=== PATIENT | male | born 1950 | race Caucasian/White ===

== ENCOUNTER → 2019-10-29 | Day surgery (SDC) | payer OTHER | END | disposition home or self-care (01) | LOC: JRADIR 12:33 | PROVIDERS: ATTEND Internal Medicine | PROC: BW11YZZ Fluoroscopy of Abdomen and Pelvis using Other Contrast (ICD-10-PCS; principal; 2019-10-29) | DX: K65.1 Peritoneal abscess (principal) | CPT/HCPCS: 49424; 76000-TC-FY; 76080-TC-FY ==

== ENCOUNTER 2019-11-12 12:39 | Inpatient (IN) | payer OTHER ==
[2019-11-12] MEDS ORDERED: ACETAMINOPHEN 1000 MG/100 ML VIAL (NON FORMULARY) IVPB ONE (14:01)
--- NOTE | 2019-11-12 15:08 | PDOC ---
Attending Attestation - Resident Resident Name: ReymundoRoxanna - ED Attending Attestation I have performed the following: I have examined & evaluated the patient, The case was reviewed & discussed with the resident, I agree w/resident's findings & plan - HPI HPI: 11/12/19 15:03 69-year-old male with history of ruptured appendicitis complicated by abscesses several weeks ago status post drain placement and removal with resolution of symptoms presents now with return of right lower quadrant pain since last night, described as dull ache without any associated fever/chills/GI complaints/ complaints. Seen for routine follow-up by Dr. Pyle and referred to the emergency department. - Physicial Exam PE: 11/12/19 15:04 Afebrile, blood pressure slightly elevated Well-appearing seated comfortably in stretcher in no acute distress No jaundice or pallor Heart is regular, lungs are clear Abdomen is soft/nondistended. Well-healed drain sites without erythema or swelling or bleeding. There is tenderness with guarding in the lateral right lower quadrant, no other rebound. No CVA tenderness. - Medical Decision Making 11/12/19 15:07 69-year-old male with recent ruptured appendicitis requiring drain placement and removal now with recurrence of right lower quadrant pain and local peritoneal findings. Otherwise well-appearing and hemodynamically stable. Concerning for recurrence of fluid collection and infection. Labs, urinalysis CT of the abdomen and pelvis Discussion with general surgery 11/12/19 16:29 leukocytosis, chem wnl including lipase. ctap pending Heart Score/ECG Review #1 ECG reviewed & interpreted by me at: 14:37 General ECG Interpretation: Sinus Rhythm, Normal Rate (81), Normal Intervals (qtc 429), No acute ischemic changes Discharge - Discharge Information Problems reviewed: Yes Clinical Impression/Diagnosis: Acute appendicitis with appendiceal abscess, Right lower quadrant pain Condition: Fair - Follow up/Referral Referrals: Jennifer Pyle MD [Primary Care Provider] - - Patient Discharge Instructions - Post Discharge Activity
[2019-11-12 15:33] LABS: BASO % 0.6 % (0-2.0); EOS % 0.7 % (0-4.5); HEMATOCRIT 44.4 % (35.4-49); HEMOGLOBIN 14.5 GM/dL (11.7-16.9); LYMPH % 23.6 % (8-40); MCH 30.5 pg (25.7-33.7); MCHC 32.7 g/dl (32.0-35.9); MONO % 11.9 % (3.8-10.2); NEUT % 63.2 % (42.8-82.8); PLATELET COUNT 181 K/MM3 (134-434); RBC 4.77 M/mm3 (4.00-5.60); RDW 17.8 % (11.9-15.9); WHITE BLOOD COUNT 15.3 K/mm3 (4.0-10.0)
[2019-11-12 15:39] LABS: INR 0.99 (0.83-1.09); PROTHROMBIN TIME (PATIENT) 11.7 SEC (9.7-13.0)
[2019-11-12 15:42] LABS: ACTIVATED PTT 28.9 SECONDS (25.2-36.5)
--- NOTE | 2019-11-12 16:03 | EKG ---
Test Reason : Blood Pressure : / mmHG Vent. Rate : 081 BPM Atrial Rate : 081 BPM P-R Int : 178 ms QRS Dur : 098 ms QT Int : 370 ms P-R-T Axes : 062 004 044 degrees QTc Int : 429 ms NORMAL SINUS RHYTHM POSSIBLE LEFT ATRIAL ENLARGEMENT NONSPECIFIC ST ABNORMALITY ABNORMAL ECG WHEN COMPARED WITH ECG OF 15-OCT-2019 22:20, PREMATURE SUPRAVENTRICULAR COMPLEXES ARE NO LONGER PRESENT MINIMAL CRITERIA FOR INFERIOR INFARCT ARE NO LONGER PRESENT Confirmed by MIYA PURI MD ([id number]) on 11/12/2019 4:03:18 PM Referred By: Confirmed By:MIYA PURI MD
[2019-11-12] MEDS ORDERED: SODIUM CHLORIDE 1,000 ML IV STA (16:08)
[2019-11-12] MEDS ORDERED: CEFEPIME HCL/D5W 2 GM/50 ML BAG IVPB ONE (16:08)
[2019-11-12 16:10] LABS: ALBUMIN 3.4 g/dl (3.4-5.0); BILIRUBIN,TOTAL 0.8 mg/dL (0.2-1); BLOOD UREA NITROGEN 12.2 mg/dL (7-18); CREATININE 0.8 mg/dL (0.55-1.3); POTASSIUM 3.5 mmol/L (3.5-5.1); TOT PROT 7.1 g/dl (6.4-8.2)
[2019-11-12] MEDS ORDERED: CEFEPIME 2 GM/100 ML BAG IVPB ONE (16:58)
[2019-11-12] MEDS ORDERED: LACTATED RINGERS SOLUTION 1000 ML INFUS.BAG IV ONE (19:13)
--- NOTE | 2019-11-12 19:14 | PDOC ---
History of Present Illness - General Chief Complaint: Pain, Acute Stated Complaint: SENT BY PCP Time Seen by Provider: 11/12/19 14:16 History Source: Patient Exam Limitations: No Limitations Past History - Medical History Allergies/Adverse Reactions: Allergies Allergy/AdvReac Type Severity Reaction Status Date / Time No Known Allergies Allergy Verified 11/12/19 12:41 Home Medications: Ambulatory Orders Metformin HCl [Glucophage] 500 mg PO DAILY 10/15/19 Acetaminophen [Tylenol .Regular Strength -] 650 mg PO Q6H PRN tablet 10/22/19 Amlodipine Besylate [Norvasc -] 10 mg PO DAILY 30 Days #30 tablet 10/22/19 Amoxicillin/Potassium Clav [Augmentin 875-125 Tablet] 1 each PO BID #20 tablet 10/22/19 Nicotine Patch [Nicoderm Patch -] 14 mg TD DAILY patch 10/22/19 Normal Saline Flush [Saline Lock Flush -] 2.5 ml IJ TID #20 disp.syrin 10/22/19 Cancer: Yes (Skin (Right yarsani)) COPD: No Diabetes: Yes HTN: Yes - Immunization History Immunization Up to Date: Yes - Psycho-Social/Smoking History Smoking History: Current every day smoker Have you smoked in the past 12 months: Yes Number of Cigarettes Smoked Daily: 20 Cigars Per Day: 0 Information on smoking cessation initiated: No - Substance Abuse Hx (Audit-C & DAST Scrn) How often the patient has a drink containing alcohol: Never Score: In Men: 4 or > Positive; In Women: 3 or > Positive: 0 Screen Result (Pos requires Nsg. Audit-10AR): Negative In the last yr the pt used illegal drug/Rx for NonMed reason: No Score: Yes response is considered Positive: 0 Screen Result (Positive result requires Nsg. DAST-10): Negative *Physical Exam - Vital Signs Last Vital Signs Temp Pulse Resp BP Pulse Ox 98.2 F 95 H 18 179/89 H 100 11/12/19 12:41 11/12/19 12:41 11/12/19 12:41 11/12/19 12:41 11/12/19 16:02 ED Treatment Course - LABORATORY CBC & Chemistry Diagram: 11/12/19 14:30 11/12/19 14:30 - ADDITIONAL ORDERS Additional order review: Laboratory Results 11/12/19 11/12/19 11/12/19 14:30 14:30 14:30 WBC 15.3 H RBC 4.77 Hgb 14.5 Hct 44.4 MCV 93.0 MCH 30.5 MCHC 32.7 RDW 17.8 H Plt Count 181 D MPV 9.0 Absolute Neuts (auto) 9.7 H Neutrophils % 63.2 Lymphocytes % 23.6 Monocytes % 11.9 H D Eosinophils % 0.7 Basophils % 0.6 Nucleated RBC % 0 PT with INR 11.70 INR 0.99 PTT (Actin FS) 28.9 Sodium 138 Potassium 3.5 Chloride 104 Carbon Dioxide 25 Anion Gap 9 BUN 12.2 Creatinine 0.8 Est GFR (CKD-EPI)AfAm 107.13 Est GFR (CKD-EPI)NonAf 92.44 Random Glucose 90 Calcium 9.0 Total Bilirubin 0.8 AST 29 ALT 47 Alkaline Phosphatase 119 H Total Protein 7.1 Albumin 3.4 Lipase 132 11/12/19 14:30 RBC 4.77 MCV 93.0 MCHC 32.7 RDW 17.8 H MPV 9.0 Neutrophils % 63.2 Lymphocytes % 23.6 Monocytes % 11.9 H D Eosinophils % 0.7 Basophils % 0.6 - RADIOLOGY Radiology Studies Ordered: Category Date Time Status ABDOMEN & PELVIS CT WITH CONTR [CT] Stat CT Scan 11/12/19 16:09 Completed - Medications Given in the ED: ED Medications Discontinued Medications Generic Name Dose Route Start Last Admin Trade Name Freq PRN Reason Stop Dose Admin Acetaminophen 1,000 mg 11/12/19 14:01 11/12/19 14:48 Ofirmev Injection - IVPB 11/12/19 14:02 Not Given ONCE ONE Cefepime HCl 2 gm in 50 mls @ 100 mls/hr 11/12/19 16:08 11/12/19 17:03 Maxipime 2gm Ivpb (Premix) IVPB 11/12/19 16:37 100 mls/hr ONCE ONE Administration Sodium Chloride 1,000 mls @ 1,000 mls/hr 11/12/19 16:08 11/12/19 17:04 Normal Saline - IV 11/12/19 17:07 1,000 mls/hr ASDIR STA Administration Discharge - Discharge Information Clinical Impression/Diagnosis: Acute appendicitis with appendiceal abscess, Right lower quadrant pain Condition: Fair - Follow up/Referral Referrals: Jennifer Pyle MD [Primary Care Provider] - - Patient Discharge Instructions - Post Discharge Activity
--- NOTE | 2019-11-12 19:32 | HP ---
CHIEF COMPLAINT:right lower quadrant pain PCP:Dr Marisol Pyle HISTORY OF PRESENT ILLNESS: 69-year-old male with a past medical history of diabetes mellitus, hypertension(on amlodipine) and a ruptured appendicitis complicated by abscesses several weeks ago status post drain placement and removal of LESVIA drain on 10/03 with completion of oral antibiotics with Augmentin. He presents today with right lower quadrant pain that started last night, described as dull ache without any associated fever/chills/nausea or vomiting. He denies chest pain, cough or shortness of breath. He was seen for routine follow-up by Dr. Pyle and referred to the emergency department today. ER course notable for: leukocytosis(WBC 15,000), received IV Cefepime 2gm. CT scan chest abdomen and pelvis with contrast- increased size of right lower quadrant complex mass involving the cecum and distal ileum, mass is ? abscess. Lipase , LFT's and renal studies are normal. Recent Travel: no PAST MEDICAL HISTORY: diabetes mellitus hypertension PAST SURGICAL HISTORY: ruptured appendicitis Social History: Smoking:yes Alcohol:no Drugs: no Family History: noncontributory Allergies No Known Allergies Allergy (Verified 11/12/19 12:41) HOME MEDICATIONS: Home Medications Medication Instructions Recorded Metformin HCl [Glucophage] 500 mg PO DAILY 10/15/19 Acetaminophen [Tylenol .Regular 650 mg PO Q6H PRN tablet 10/22/19 Strength -] Amlodipine Besylate [Norvasc -] 10 mg PO DAILY 30 Days #30 tablet 10/22/19 Amoxicillin/Potassium Clav 1 each PO BID #20 tablet 10/22/19 [Augmentin 875-125 Tablet] Nicotine Patch [Nicoderm Patch -] 14 mg TD DAILY patch 10/22/19 Normal Saline Flush [Saline Lock 2.5 ml IJ TID #20 disp.syrin 10/22/19 Flush -] REVIEW OF SYSTEMS CONSTITUTIONAL: Absent: fever, chills, diaphoresis, generalized weakness, malaise, loss of appetite, weight change HEENT: Absent: rhinorrhea, nasal congestion, throat pain, throat swelling, difficulty swallowing, mouth swelling, ear pain, eye pain, visual changes CARDIOVASCULAR: Absent: chest pain, syncope, palpitations, irregular heart rate, lightheadedness, peripheral edema RESPIRATORY: Absent: cough, shortness of breath, dyspnea with exertion, orthopnea, wheezing, stridor, hemoptysis GASTROINTESTINAL: Absent: right lower quadrant abdominal pain, no abdominal distension, nausea, vomiting, diarrhea, constipation, melena, hematochezia GENITOURINARY: Absent: dysuria, frequency, urgency, hesitancy, hematuria, flank pain, genital pain MUSCULOSKELETAL: Absent: myalgia, arthralgia, joint swelling, back pain, neck pain SKIN: Absent: rash, itching, pallor HEMATOLOGIC/IMMUNOLOGIC: Absent: easy bleeding, easy bruising, lymphadenopathy, frequent infections ENDOCRINE: Absent: unexplained weight gain, unexplained weight loss, heat intolerance, cold intolerance NEUROLOGIC: Absent: headache, focal weakness or paresthesias, dizziness, unsteady gait, seizure, mental status changes, bladder or bowel incontinence PSYCHIATRIC: Absent: anxiety, depression, suicidal or homicidal ideation, hallucinations. PHYSICAL EXAMINATION Vital Signs - 24 hr 11/12/19 11/12/19 12:41 16:02 Temperature 98.2 F Pulse Rate 95 H Respiratory 18 Rate Blood Pressure 179/89 H O2 Sat by Pulse 100 100 Oximetry (%) General no acute distress appears comfortable Vital signs reviewed afebrile blood pressure noted Neuro no focal deficits Neck supple no JVD Lungs CTA nonlabored breathing effort no rales no wheezing Heart s1s2 rate regular and normal Abdomen soft RLQ tenderness Extremities warm to touch no pitting edema no cyanosis Mood calm Laboratory Results - last 24 hr 11/12/19 11/12/19 11/12/19 14:30 14:30 14:30 WBC 15.3 H RBC 4.77 Hgb 14.5 Hct 44.4 MCV 93.0 MCH 30.5 MCHC 32.7 RDW 17.8 H Plt Count 181 D MPV 9.0 Absolute Neuts (auto) 9.7 H Neutrophils % 63.2 Lymphocytes % 23.6 Monocytes % 11.9 H D Eosinophils % 0.7 Basophils % 0.6 Nucleated RBC % 0 PT with INR 11.70 INR 0.99 PTT (Actin FS) 28.9 Sodium 138 Potassium 3.5 Chloride 104 Carbon Dioxide 25 Anion Gap 9 BUN 12.2 Creatinine 0.8 Est GFR (CKD-EPI)AfAm 107.13 Est GFR (CKD-EPI)NonAf 92.44 Random Glucose 90 Calcium 9.0 Total Bilirubin 0.8 AST 29 ALT 47 Alkaline Phosphatase 119 H Total Protein 7.1 Albumin 3.4 Lipase 132 ASSESSMENT/PLAN: In summary Mr. Brewer is a 69-year-old male with a past medical history significant for diabetes mellitus, hypertension(on amlodipine) and a ruptured appendicitis complicated by abscesses several weeks ago status post drain placement and removal of LESVIA drains on 10/29/2019 with resolution of symptoms. He presents with right lower quadrant pain that started last night. He has no fever, nausea or vomiting. He was found to have leukocytosis and on CT scan of abdomen with contrast a mass is noted which is likely an abscess. He is being admitted to the Medicine Team for further medical evaluation and management. #1 Right Lower Quadrant Pain/ Leukocytosis /Abscess CT scan results as above currently afebrile, received one dosage of IV Cefepime 2gm --NPO --IVF NS @ 75cc/hr --c/w IV Cefepime 1 gm --blood and urine culture pending --c/w pain control, IV morphine 2 mg ordered --Dr. Mccord -Surgery consulted --Dr. Tuttle - IR consulted --Dr. Araya - Infectious Diseases consulted #2 Hypertension elevated BP and likely related to pain repeat blood pressure tonight --c/w pain control --c/w amlodipine #3 Diabetes Mellitus metformin on hold BGM before meals and at bedtime insulin as per sliding scale #4 R/O COVID follow up on COVID test sent 11/11 follow strict droplet/contact isolation precautions DVT Prophylaxis SCD's no anticoagulation in anticipation of invasive procedure if indicated FEN IVF NS @ 75cc/hr BMP daily, replete as needed NPO Visit type - Medication Review Med list reviewed for High Risk Meds patients 65 and older: Yes - Emergency Visit Emergency Visit: Yes ED Registration Date: 11/12/19 Care time: The patient presented to the Emergency Department on the above date and was hospitalized for further evaluation of their emergent condition. - New Patient This patient is new to me today: Yes Date on this admission: 11/13/19 - Critical Care Critical Care patient: No
[2019-11-12] MEDS ORDERED: MORPHINE SULFATE 2 MG/ML VIAL IVPUSH ONE (19:56)
[2019-11-12] MEDS ORDERED: MORPHINE SULFATE 2 MG/ML VIAL ONE (20:13)
[2019-11-12] MEDS: SODIUM CHLORIDE 1,000 ML IV SCH (21:46)
[2019-11-12] MEDS: NICOTINE 7 MG/24 HOURS TOPICAL PATCH TD SCH (22:00)
[2019-11-13] MEDS ORDERED: ACETAMINOPHEN 1000 MG/100 ML VIAL (NON FORMULARY) IVPB PRN (00:24)
[2019-11-13] MEDS: INSULIN SLIDING SCALE (NOVOLOG) 1 VIAL SQ SCH ×2 (06:11→16:31)
[2019-11-13] MEDS ORDERED: CEFEPIME HCL/D5W 1 GM/50 ML BAG IVPB SCH (08:00)
--- NOTE | 2019-11-13 08:10 | CONSULT ---
- Consultation REQUESTING PROVIDER: CONSULT REQUEST: We have been asked to surgically evaluate this patient for rlq collection PCP:Janet Pyle MD HISTORY OF PRESENT ILLNESS: 69 y/o M w/ PMHx DM, HTN (on amlodipine), recent ruptured appendicitis (admitted to [facility] 10/14-10/21) s/p IR drain placement (10/18 x2 drains) now re-admitted with new rlq pain. Pt reports he awoke at 3am Tuesday with severe rlq pain. States he had an appointment with his PCP yesterday and was told to go to the ER. Reports IR drains were removed on 10/28 and he completed his course of Augmentin a week ago. CT in ER shows increased collection in RLQ. Denies fever/chills, n/v/d, cp/sob at home. Has been tolerating PO without issue and having normal BMS. Having diarrhea since this AM which he attributes to antibiotics. PMHx: ABOVE PSHx: denies Home Medications Medication Instructions Recorded Amlodipine Besylate 5 mg PO DAILY 11/12/19 Allergies Allergy/AdvReac Type Severity Reaction Status Date / Time No Known Allergies Allergy Verified 11/12/19 12:41 REVIEW OF SYSTEMS: CONSTITUTIONAL: Absent: fever, chills, diaphoresis CARDIOVASCULAR: Absent: chest pain, syncope RESPIRATORY: Absent: cough, shortness of breath GASTROINTESTINAL: (+) abdominal pain, (-) abdominal distension, (-) nausea, (-) vomiting PHYSICAL EXAM: GENERAL: Awake, alert, and fully oriented, in no acute distress. HEAD: Normal with no signs of trauma. LUNGS: No accessory muscle use on RA ABDOMEN: Soft, ++ttp rlq, + small palpable mass rlq (?tract where prior drain was), hypoactive bowel sounds, no guarding, no rebound Vital Signs Temperature 98.4 F 11/13/19 05:26 Pulse Rate 76 11/13/19 05:26 Respiratory Rate 20 11/13/19 05:26 Blood Pressure 162/79 11/13/19 05:26 O2 Sat by Pulse Oximetry (%) 94 L 11/13/19 05:26 Lab Results WBC 15.3 K/mm3 (4.0-10.0) H 11/12/19 14:30 RBC 4.77 M/mm3 (4.00-5.60) 11/12/19 14:30 Hgb 14.5 GM/dL (11.7-16.9) 11/12/19 14:30 Hct 44.4 % (35.4-49) 11/12/19 14:30 MCV 93.0 fl (80-96) 11/12/19 14:30 MCHC 32.7 g/dl (32.0-35.9) 11/12/19 14:30 RDW 17.8 % (11.9-15.9) H 11/12/19 14:30 Plt Count 181 K/MM3 (134-434) D 11/12/19 14:30 INR 0.99 (0.83-1.09) 11/12/19 14:30 Sodium 138 mmol/L (136-145) 11/12/19 14:30 Potassium 3.5 mmol/L (3.5-5.1) 11/12/19 14:30 Chloride 104 mmol/L (98-107) 11/12/19 14:30 Carbon Dioxide 25 mmol/L (21-32) 11/12/19 14:30 Anion Gap 9 MMOL/L (8-16) 11/12/19 14:30 BUN 12.2 mg/dL (7-18) 11/12/19 14:30 Creatinine 0.8 mg/dL (0.55-1.3) 11/12/19 14:30 Random Glucose 90 mg/dL (74-106) 11/12/19 14:30 Calcium 9.0 mg/dL (8.5-10.1) 11/12/19 14:30 Blood Type O POSITIVE 11/12/19 23:50 Antibody Screen Negative 11/12/19 23:50 CT a/p (11/11): Increased sie of rlq complesx mass involving the cecum and dital ileum (7.7x7.4x7.1cm) A/P: 69 y/o M w/ PMHx DM, HTN (on amlodipine), recent ruptured appendicitis (admitted to [facility] 10/14-10/21) s/p IR drain placement (10/18 x2 drains) now re- admitted with new rlq pain. afebrile, vss Leukocytosis 15k on admission, am labs pending -will discuss case with IR (Dr Gabreal) however likely phlegmon -Pt on the schedule for R hemicolectomytomorrow at 11AM -Covid pending -Keep npo -Labs in AM -Abx per ID -CEA sent -No bowel prep d/w attending Dr Mccord
[2019-11-13 08:41] LABS: BASO % 0.5 % (0-2.0); EOS % 0.4 % (0-4.5); HEMATOCRIT 43.9 % (35.4-49); HEMOGLOBIN 14.5 GM/dL (11.7-16.9); LYMPH % 15.6 % (8-40); MCH 30.7 pg (25.7-33.7); MEAN CELL VOLUME 92.8 fl (80-96); MONO % 9.9 % (3.8-10.2); NEUT % 73.6 % (42.8-82.8); PLATELET COUNT 187 K/MM3 (134-434); RBC 4.74 M/mm3 (4.00-5.60); RDW 17.8 % (11.9-15.9); WHITE BLOOD COUNT 12.6 K/mm3 (4.0-10.0)
--- NOTE | 2019-11-13 08:44 | CON.ID ---
Consult Consult Specialty:: infectious diseases Referred by:: laney Reason for Consultation:: ruptured appendix,apeenicular abscess - History of Present Illness Chief Complaint: abd pain History of Present Illness: 69-year-old male with a past medical history of diabetes mellitus, hypertension and a ruptured appendicitis complicated by abscesses several weeks ago status post drain placement and removal of LESVIA drain on 10/29/2019 with completion of oral antibiotics with Augmentin. admitted with right lower quadrant pain that started last night, described as dull ache without any associated fever/chills/nausea or vomiting. He denies chest pain, cough or shortness of breath. patient came to the er and was found to have increased abscess - History Source History Provided By: Patient Limitations to Obtaining History: No Limitations - Past Medical History Cardio/Vascular: Yes: HTN, Hyperlipdemia Gastrointestinal: Yes: Diverticulosis, Other (colon polyps remotely) Hepatobiliary: Yes: Cholelithiasis, Other (fatty liver) Endocrine: Yes: Diabetes Mellitus - Past Surgical History Past Surgical History: Yes: Colonoscopy, Laminectomy (lumbar) - Alcohol/Substance Use Hx Alcohol Use: No History of Substance Use: reports: None - Smoking History Smoking history: Current every day smoker Have you smoked in the past 12 months: Yes Aproximately how many cigarettes per day: 20 - Social History Usual Living Arrangement: With Spouse ADL: Independent 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 History of Recent Travel: No Home Medications - Allergies Allergies/Adverse Reactions: Allergies Allergy/AdvReac Type Severity Reaction Status Date / Time No Known Allergies Allergy Verified 11/12/19 12:41 - Home Medications Home Medications: Ambulatory Orders Amlodipine Besylate 5 mg PO DAILY 11/12/19 Review of Systems - Review of Systems Constitutional: reports: Other Eyes: reports: No Symptoms HENT: reports: No Symptoms Neck: reports: No Symptoms Cardiovascular: reports: No Symptoms Respiratory: reports: No Symptoms Gastrointestinal: reports: Abdominal Pain Genitourinary: reports: No Symptoms Musculoskeletal: reports: No Symptoms Integumentary: reports: No Symptoms Neurological: reports: No Symptoms Endocrine: reports: No Symptoms Hematology/Lymphatic: reports: No Symptoms Psychiatric: reports: No Symptoms Physical Exam Vital Signs: Vital Signs Temperature 98.4 F 11/13/19 05:26 Pulse Rate 76 11/13/19 05:26 Respiratory Rate 20 11/13/19 05:26 Blood Pressure 162/79 11/13/19 05:26 O2 Sat by Pulse Oximetry (%) 94 L 11/13/19 05:26 Constitutional: Yes: Well Nourished, Calm, Mild Distress HENT: Yes: Atraumatic, Normocephalic Neck: Yes: Supple, Trachea Midline Cardiovascular: Yes: Regular Rate and Rhythm Respiratory: Yes: Regular, CTA Bilaterally Gastrointestinal: Yes: Hypoactive Bowel Sounds, Tenderness, Other Musculoskeletal: Yes: WNL Extremities: Yes: WNL Neurological: Yes: Alert, Oriented Psychiatric: Yes: Alert, Oriented Imaging - Results Cat Scan: Report Reviewed, Image Reviewed Assessment/Plan this patient with multiple medical problems who had appendicitis treated conservatively and now coming back with increase in mass and probably abscess with leukocytosis #1 Right Lower Quadrant Pain #2 Hypertension #3 Diabetes Mellitus abd pain leukocytosis plan i think patient needs surgery will start patient on abx rest as per the team npo hydration
[2019-11-13 09:10] LABS: BLOOD UREA NITROGEN 10.4 mg/dL (7-18); CALCIUM 8.9 mg/dL (8.5-10.1); CREATININE 0.7 mg/dL (0.55-1.3); MAGNESIUM 2.3 mg/dL (1.8-2.4); POTASSIUM 3.8 mmol/L (3.5-5.1)
[2019-11-13] MEDS ORDERED: PT OWN MED DRAWER 7, Y5N ONE (09:54)
[2019-11-13] MEDS ORDERED: PIPERACILLIN/TAZOBACTAM 4.5 GM VIAL IVPB ONE ×2 (09:55→17:59)
[2019-11-13] MEDS ORDERED: DEXTROSE 5%-WATER 100 ML IVPB ONE ×2 (09:55→17:59)
[2019-11-13] MEDS: PIPERACILLIN/TAZOB 4.5 GM 4.5 GM in DEXTROSE 5%-WATER 100 ML IVPB SCH ×2 (10:25→18:23)
[2019-11-13] MEDS: amLODIPine BESYLATE 10 MG TABLET (FP) PO SCH (10:26)
[2019-11-13] MEDS: NICOTINE 7 MG/24 HOURS TOPICAL PATCH TD SCH (10:26)
--- NOTE | 2019-11-13 10:42 | PN ---
Physical Exam: SUBJECTIVE: Patient seen and examined at bedside. Patient endorses right lower quadrant pain upon palpation. Patient reports speaking to surgery and agreeing to surgical intervention for tomorrow. Patient also endorses loose watery diarrhea. Patient denies nausea, vomiting, bloating, or constipation. OBJECTIVE: Vital Signs Period Temp Pulse Resp BP Sys/Ayala Pulse Ox Last 24 Hr 98.2 F-99.6 F 76-95 18-20 158-179/75-89 94-100 GENERAL: The patient is awake, alert, and fully oriented, in no acute distress. LUNGS: Breath sounds equal, clear to auscultation bilaterally, no wheezes, no crackles, no accessory muscle use. HEART: Regular rate and rhythm, S1, S2 without murmur, rub or gallop. ABDOMEN: RLQ PAIN EXTREMITIES: 2+ pulses, warm, well-perfused, no edema. PSYCH: Normal mood, normal affect. SKIN: Warm, dry, normal turgor, no rashes or lesions noted Laboratory Results - last 24 hr 11/12/19 11/12/19 11/12/19 14:30 14:30 14:30 WBC 15.3 H RBC 4.77 Hgb 14.5 Hct 44.4 MCV 93.0 MCH 30.5 MCHC 32.7 RDW 17.8 H Plt Count 181 D MPV 9.0 Absolute Neuts (auto) 9.7 H Neutrophils % 63.2 Lymphocytes % 23.6 Monocytes % 11.9 H D Eosinophils % 0.7 Basophils % 0.6 Nucleated RBC % 0 PT with INR 11.70 INR 0.99 PTT (Actin FS) 28.9 Sodium 138 Potassium 3.5 Chloride 104 Carbon Dioxide 25 Anion Gap 9 BUN 12.2 Creatinine 0.8 Est GFR (CKD-EPI)AfAm 107.13 Est GFR (CKD-EPI)NonAf 92.44 POC Glucometer Random Glucose 90 Calcium 9.0 Magnesium Total Bilirubin 0.8 AST 29 ALT 47 Alkaline Phosphatase 119 H Total Protein 7.1 Albumin 3.4 Lipase 132 Blood Type Antibody Screen 11/12/19 11/12/19 11/13/19 22:53 23:50 06:08 WBC RBC Hgb Hct MCV MCH MCHC RDW Plt Count MPV Absolute Neuts (auto) Neutrophils % Lymphocytes % Monocytes % Eosinophils % Basophils % Nucleated RBC % PT with INR INR PTT (Actin FS) Sodium Potassium Chloride Carbon Dioxide Anion Gap BUN Creatinine Est GFR (CKD-EPI)AfAm Est GFR (CKD-EPI)NonAf POC Glucometer 92 98 Random Glucose Calcium Magnesium Total Bilirubin AST ALT Alkaline Phosphatase Total Protein Albumin Lipase Blood Type O POSITIVE Antibody Screen Negative 11/13/19 11/13/19 06:54 06:54 WBC 12.6 H RBC 4.74 Hgb 14.5 Hct 43.9 MCV 92.8 MCH 30.7 MCHC 33.0 RDW 17.8 H Plt Count 187 MPV 9.0 Absolute Neuts (auto) 9.3 H Neutrophils % 73.6 Lymphocytes % 15.6 D Monocytes % 9.9 Eosinophils % 0.4 Basophils % 0.5 Nucleated RBC % 0 PT with INR INR PTT (Actin FS) Sodium 139 Potassium 3.8 Chloride 106 Carbon Dioxide 27 Anion Gap 6 L BUN 10.4 Creatinine 0.7 Est GFR (CKD-EPI)AfAm 113.18 Est GFR (CKD-EPI)NonAf 97.65 POC Glucometer Random Glucose 80 Calcium 8.9 Magnesium 2.3 Total Bilirubin AST ALT Alkaline Phosphatase Total Protein Albumin Lipase Blood Type Antibody Screen Active Medications Generic Name Dose Route Start Last Admin Trade Name Freq PRN Reason Stop Dose Admin Acetaminophen 1,000 mg 11/13/19 00:24 Ofirmev Injection - IVPB 11/14/19 00:24 Q6H PRN PAIN LEVEL 6-10 Amlodipine Besylate 10 mg 11/13/19 10:00 Norvasc - PO DAILY RIO Sodium Chloride 1,000 mls @ 75 mls/hr 11/12/19 20:00 11/12/19 21:46 Normal Saline - IV 75 mls/hr ASDIR RIO Administration Piperacillin Sod/Tazobactam 100 mls @ 200 mls/hr 11/13/19 10:00 Sod 4.5 gm/ Dextrose IVPB Q8H-IV RIO Protocol Insulin Aspart 1 vial 11/13/19 07:00 11/13/19 06:11 Novolog Vial Sliding Scale - SQ Not Given BIDAC RIO Protocol Nicotine 7 mg 11/12/19 21:15 11/12/19 22:00 Nicoderm Patch - TD 7 mg DAILY RIO Administration ASSESSMENT/PLAN: Mr. Brewer is a 69-year-old male with a past medical history significant for ilio-cecal mass s/p percutaneous drainage of fluid collection on 10/18, iliopsoas abscess, s/p large right retroperitonea ilipsoas abscess drainage with pigtail catheter placement, COPD, Gallstones, colonic polyps, diverticulosis diabetes mellitus, and hypertension. # Right Lower Quadrant Pain - Latest CT scan yesterday: increased right lower quadrant complex mass involving cecum and distal ileum. Possible abscess - Blood cultures are still pending - Pt schedule for Right sided hemicolectomy on 11/13 at 11am - Dr. Jhaveri - Patient will continue to remain NPO - WBC 12.6 - Patient placed on IV Cefepime 2gm per ID - Patient also on flagyl 4.5gm - pain controlled with 1g acetaminophen injection #Hypertension - placed on home amlodipine - likely reactionary hypertension to pain #Diabetes Mellitus - metformin held - BGM pre and post prandial -ISS DVT ppx - SCD's - Deffer AC in setting of surgery FEN IVF NS @ 75cc/hr NPO Visit type - Emergency Visit Emergency Visit: Yes ED Registration Date: 11/12/19 Care time: The patient presented to the Emergency Department on the above date and was hospitalized for further evaluation of their emergent condition. - New Patient This patient is new to me today: Yes Date on this admission: 11/13/19 - Critical Care Critical Care patient: No - Discharge Referral Referred to [facility] Med P.C[facility] No - Medication Review Med list reviewed for High Risk Meds patients 65 and older: Yes ATTENDING PHYSICIAN STATEMENT I saw and evaluated the patient. I reviewed the resident's note and discussed the case with the resident. I agree with the resident's findings and plan as documented. SUBJECTIVE: OBJECTIVE: ASSESSMENT AND PLAN:
--- NOTE | 2019-11-13 14:04 | PN ---
Teaching Attending Note Name of Resident: Leonidas Tavera ATTENDING PHYSICIAN STATEMENT I saw and evaluated the patient. I reviewed the resident's note and discussed the case with the resident. I agree with the resident's findings and plan as documented. SUBJECTIVE: pt still has pain RLQ but slightly better, OBJECTIVE: Last Vital Signs Temp Pulse Resp BP Pulse Ox 99.1 F 75 16 158/75 94 L 11/13/19 14:43 11/13/19 14:43 11/13/19 14:43 11/13/19 14:43 11/13/19 14:43 GENERAL: Awake, alert, and fully oriented, in no acute distress. HEAD: Normal with no signs of trauma. EYES: Pupils equal, round and reactive to light, extraocular movements intact, sclera anicteric, conjunctiva clear. No lid lag. EARS, NOSE, THROAT: Ears normal, nares patent, oropharynx clear without exudates. Moist mucous membranes. NECK: Normal range of motion, supple without lymphadenopathy, JVD, or masses. LUNGS: Breath sounds equal, clear to auscultation bilaterally. No wheezes, and no crackles. No accessory muscle use. HEART: Regular rate and rhythm, normal S1 and S2 without murmur, rub or gallop. ABDOMEN: Soft,, not distended, normoactive bowel sounds, no guarding, no rebound, no masses. No hepatomegaly or splenomegaly. tender RLQ, bs pos and normal. MUSCULOSKELETAL: Normal range of motion at all joints. No bony deformities or tenderness. No CVA tenderness. UPPER EXTREMITIES: 2+ pulses, warm, well-perfused. No cyanosis. No clubbing. No peripheral edema. LOWER EXTREMITIES: 2+ pulses, warm, well-perfused. No calf tenderness. No peripheral edema. NEUROLOGICAL: Cranial nerves II-XII intact. Normal speech. Normal gait. PSYCHIATRIC: Cooperative. Good eye contact. Appropriate mood and affect. SKIN: Warm, dry, normal turgor, no rashes or lesions noted, normal capillary refill. Current Medications Generic Name Dose Route Start Last Admin Trade Name Freq PRN Reason Stop Dose Admin Acetaminophen 1,000 mg 11/13/19 00:24 Ofirmev Injection - IVPB 11/14/19 00:24 Q6H PRN PAIN LEVEL 6-10 Amlodipine Besylate 10 mg 11/13/19 10:00 11/13/19 10:26 Norvasc - PO 10 mg DAILY RIO Administration Sodium Chloride 1,000 mls @ 75 mls/hr 11/12/19 20:00 11/12/19 21:46 Normal Saline - IV 75 mls/hr ASDIR RIO Administration Piperacillin Sod/Tazobactam 100 mls @ 200 mls/hr 11/13/19 10:00 11/13/19 10:25 Sod 4.5 gm/ Dextrose IVPB 200 mls/hr Q8H-IV RIO Administration Protocol Insulin Aspart 1 vial 11/13/19 07:00 11/13/19 16:31 Novolog Vial Sliding Scale - SQ Not Given BIDAC RIO Protocol Nicotine 7 mg 11/12/19 21:15 11/13/19 10:26 Nicoderm Patch - TD 7 mg DAILY RIO Administration ASSESSMENT AND PLAN: 69m with 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 Pt declined surgical resection in october and wanted to be treated conservatively for presumed perforated appendicitis and assumed risk of delaying diagnosis of perforated malignancy. pt had reported 80lb deliberate weight loss at that time. Pt had drains removed and was well until yesterday with rlq pain returned. ct shows persistent inflammatory mass in rlq with leukocytosis. # Right Lower Quadrant Pain -Plan- rlq inflammatory mass. recommended right colectomy possible ileostomy by surgery . and pt now agrees with surgery. covid status is pending. surgery scheduled for tomorrow if covid negative. npo for now. iv abx. #Hypertension home meds, #Diabetes Mellitus - RISS DVT ppx - SCD's FEN IVF NS @ 75cc/hr
--- NOTE | 2019-11-13 17:14 | PN ---
Progress Note (short form) - Note Progress Note: surgery 69m with 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 Pt declined surgical resection in october and wanted to be treated conservatively for presumed perforated appendicitis and assumed risk of delaying diagnosis of perforated malignancy. pt had reported 80lb deliberate weight loss at that time. Pt had drains removed and was well until yesterday with rlq pain returned. ct shows persistent inflammatory mass in rlq with leukocytosis. Plan- rlq inflammatory mass. recommend right colectomy possible ileostomy. spoke with daughter and patient and now agree with surgery. covid status is pending. surgery scheduled for tomorrow if covid negative. Test sent yesterday. if covid positive should delay surgery to avoid risk of respiratory failure and thromboembolic events. If covid status not available by tomorrow morning will have to reschedule.
[2019-11-13] MEDS: SODIUM CHLORIDE 1,000 ML IV SCH ×2 (18:22→20:15)
[2019-11-14] MEDS ORDERED: PIPERACILLIN/TAZOBACTAM 4.5 GM VIAL IVPB ONE ×3 (00:54→11:34)
[2019-11-14] MEDS: PIPERACILLIN/TAZOB 4.5 GM 4.5 GM in DEXTROSE 5%-WATER 100 ML IVPB SCH ×3 (01:02→19:45)
[2019-11-14] MEDS: SODIUM CHLORIDE 1,000 ML IV SCH ×2 (05:58→09:50)
[2019-11-14] MEDS: INSULIN SLIDING SCALE (NOVOLOG) 1 VIAL SQ SCH ×2 (06:24→17:35)
[2019-11-14 08:16] LABS: HEMATOCRIT 49.3 % (35.4-49); MCH 30.2 pg (25.7-33.7); MCHC 32.4 g/dl (32.0-35.9); MEAN CELL VOLUME 93.2 fl (80-96); MEAN PLT VOLUME 8.9 fl (7.5-11.1); PLATELET COUNT 214 K/MM3 (134-434); RBC 5.29 M/mm3 (4.00-5.60); RDW 18.1 % (11.9-15.9)
[2019-11-14 08:21] LABS: BLOOD UREA NITROGEN 11.9 mg/dL (7-18); CALCIUM 8.8 mg/dL (8.5-10.1); CREATININE 0.8 mg/dL (0.55-1.3); MAGNESIUM 2.3 mg/dL (1.8-2.4); PHOSPHOROUS 3.3 mg/dL (2.5-4.9); POTASSIUM 3.6 mmol/L (3.5-5.1)
--- NOTE | 2019-11-14 09:38 | PN ---
Progress Note, Physician History of Present Illness: stable for surgery today - Current Medication List Current Medications: Active Medications Amlodipine Besylate (Norvasc -) 10 mg PO DAILY [facility] Last Admin: 11/13/19 10:26 Dose: 10 mg Documented by: Sodium Chloride (Normal Saline -) 1,000 mls @ 75 mls/hr IV ASDIR RIO Last Admin: 11/14/19 05:58 Dose: 75 mls/hr Documented by: Piperacillin Sod/Tazobactam (Sod 4.5 gm/ Dextrose) 100 mls @ 200 mls/hr IVPB Q8H-IV RIO; Protocol Last Admin: 11/14/19 01:02 Dose: 200 mls/hr Documented by: Insulin Aspart (Novolog Vial Sliding Scale -) 1 vial SQ BIDAC RIO; Protocol Last Admin: 11/14/19 06:24 Dose: Not Given Documented by: Nicotine (Nicoderm Patch -) 7 mg TD DAILY [facility] Last Admin: 11/13/19 10:26 Dose: 7 mg Documented by: - Objective Vital Signs: Vital Signs Temperature 97.6 F 11/14/19 06:18 Pulse Rate 71 11/14/19 06:18 Respiratory Rate 18 11/14/19 06:18 Blood Pressure 149/72 11/14/19 06:18 O2 Sat by Pulse Oximetry (%) 96 11/14/19 06:18 Constitutional: Yes: No Distress, Calm Cardiovascular: Yes: S1, S2 Respiratory: Yes: Regular, CTA Bilaterally Gastrointestinal: Yes: Soft, Hypoactive Bowel Sounds, Tenderness Musculoskeletal: Yes: WNL Extremities: Yes: WNL Neurological: Yes: Alert, Oriented Psychiatric: Yes: Alert, Oriented Labs: CBC, BMP 11/14/19 06:34 11/14/19 06:34 INR, PTT INR 0.99 (0.83-1.09) 11/12/19 14:30 Assessment/Plan this patient with multiple medical problems who had appendicitis treated con servatively and now coming back with increase in mass and probably abscess with leukocytosis #1 Right Lower Quadrant Pain #2 Hypertension #3 Diabetes Mellitus abd pain leukocytosis plan abx awaiting surgery npo hydration rest as per the team
[2019-11-14] MEDS ORDERED: DEXTROSE 5%-WATER 100 ML IVPB ONE (09:42)
[2019-11-14] MEDS: amLODIPine BESYLATE 10 MG TABLET (FP) PO SCH (09:50)
[2019-11-14] MEDS: NICOTINE 7 MG/24 HOURS TOPICAL PATCH TD SCH (09:50)
[2019-11-14] MEDS ORDERED: BUPIVACAINE LIPOSOME/PF (EXPAREL) 266 MG/20 ML VIAL ONE (10:15)
[2019-11-14] MEDS ORDERED: MIDAZOLAM HCL 2 MG/2 ML SINGLE DOSE VIAL ONE ×3 (10:21→10:57)
[2019-11-14] MEDS ORDERED: PROPOFOL 20 ML ONE (10:57)
[2019-11-14] MEDS ORDERED: fentaNYL CITRATE 250 MCG/5 ML VIAL ONE (10:58)
[2019-11-14] MEDS ORDERED: ROCURONIUM BROMIDE 100 MG/10 ML VIAL ONE ×2 (10:58→11:11)
[2019-11-14] MEDS ORDERED: PIPERACILLIN/TAZOBACTAM 3.375 GM VIAL IVPB ONE ×2 (11:36→11:40)
[2019-11-14] MEDS ORDERED: DEXAMETHASONE SOD PHOSPHATE 4 MG/1 ML VIAL ONE (11:53)
[2019-11-14] MEDS ORDERED: KETOROLAC TROMETHAMINE 30 MG/1 ML VIAL ONE (11:53)
[2019-11-14] MEDS ORDERED: DESFLURANE GAS 240 ML BOTTLE IH ONE (12:23)
[2019-11-14] MEDS ORDERED: GLYCOPYRROLATE 0.2 MG/1 ML VIAL ONE ×2 (12:35)
[2019-11-14] MEDS ORDERED: NEOSTIGMINE METHYLSULFATE 0.5 MG/ML - 10 ML MDV ONE (12:35)
--- NOTE | 2019-11-14 12:57 | OP ---
Operative Note - Note: Operative Date: 11/14/19 Pre-Operative Diagnosis: inflammatory mass right lower quadrant Operation: exploratory laparotomy, right pietro-colectomy with en-bloc resection of portion of proximal ileum Findings: large cecal mass involving portion of proximal ileum, no obvious metastatic disease, appendix not visualized Post-Operative Diagnosis: Same as Pre-op Surgeon: Hugo Mccord [employer] Manager: Alhaji Salinas Anesthesiologist/MINILAB OPERATOR: Hugo Johnson Anesthesia: General Specimens Removed: right pietro-colectomy with attached proximal ileum Estimated Blood Loss (mls): 30 Operative Report Dictated: Yes
[2019-11-14] MEDS ORDERED: ACETAMINOPHEN 325 MG TABLET (FP) PO PRN (13:02)
[2019-11-14] MEDS ORDERED: morphine SULFATE 4 MG/ML VIAL IVPB PRN (13:02)
[2019-11-14] MEDS ORDERED: ONDANSETRON 4 MG/2 ML VIAL IVPUSH PRN (13:10)
[2019-11-14] MEDS ORDERED: PROMETHAZINE HCL 25 MG/1 ML VIAL IVPUSH PRN (13:10)
--- NOTE | 2019-11-14 14:50 | PN ---
Physical Exam: SUBJECTIVE: Patient seen and examined at bedside. Patient endorses RLQ pain upon light palpation. Patient awaiting surgery. OBJECTIVE: Vital Signs Period Temp Pulse Resp BP Sys/Ayala Pulse Ox Last 24 Hr 97.6 F-99.1 F 71-94 16-18 149-187/70-87 94-96 GENERAL: The patient is awake, alert, and fully oriented, in no acute distress. HEAD: Normal with no signs of trauma. EYES: PERRL, extraocular movements intact, sclera anicteric, conjunctiva clear. No ptosis. ENT: Ears normal, nares patent, oropharynx clear without exudates, moist mucous membranes. NECK: Trachea midline, full range of motion, supple. LUNGS: Breath sounds equal, clear to auscultation bilaterally, no wheezes, no crackles, no accessory muscle use. HEART: Regular rate and rhythm, S1, S2 without murmur, rub or gallop. ABDOMEN: Soft, nontender, nondistended, normoactive bowel sounds, no guarding, no rebound, no hepatosplenomegaly, no masses. EXTREMITIES: 2+ pulses, warm, well-perfused, no edema. NEUROLOGICAL: Cranial nerves II through XII grossly intact. Normal speech, gait not observed. PSYCH: Normal mood, normal affect. SKIN: Warm, dry, normal turgor, no rashes or lesions noted Laboratory Results - last 24 hr 11/12/19 11/13/19 11/14/19 21:21 16:29 06:00 WBC RBC Hgb Hct MCV MCH MCHC RDW Plt Count MPV Sodium Potassium Chloride Carbon Dioxide Anion Gap BUN Creatinine Est GFR (CKD-EPI)AfAm Est GFR (CKD-EPI)NonAf POC Glucometer 97 84 Random Glucose Calcium Phosphorus Magnesium COVID-19 ([facility]) Not detected 11/14/19 11/14/19 06:34 06:34 WBC 13.0 H RBC 5.29 Hgb 16.0 Hct 49.3 H MCV 93.2 MCH 30.2 MCHC 32.4 RDW 18.1 H Plt Count 214 MPV 8.9 Sodium 140 Potassium 3.6 Chloride 104 Carbon Dioxide 24 Anion Gap 12 BUN 11.9 Creatinine 0.8 Est GFR (CKD-EPI)AfAm 107.13 Est GFR (CKD-EPI)NonAf 92.44 POC Glucometer Random Glucose 82 Calcium 8.8 Phosphorus 3.3 Magnesium 2.3 COVID-19 ([facility]) Active Medications Generic Name Dose Route Start Last Admin Trade Name Freq PRN Reason Stop Dose Admin Acetaminophen 650 mg 11/14/19 13:02 Tylenol - PO Q4H PRN FEVER Amlodipine Besylate 10 mg 11/15/19 10:00 Norvasc - PO DAILY [facility] Enoxaparin Sodium 40 mg 11/16/19 10:00 Lovenox - SQ DAILY [facility] Fentanyl 50 mcg 11/14/19 13:10 Sublimaze Injection - IVPUSH [id number] PRN PAIN-PACU ORDER X 4 DOSES ONLY Famotidine/Sodium Chloride 20 mg in 50 mls @ 100 mls/hr 11/14/19 22:00 Pepcid 20 Mg Premixed Ivpb - IVPB BID [facility] Sodium Chloride 1,000 mls @ 75 mls/hr 11/14/19 13:19 Normal Saline - IV ASDIR [facility] Piperacillin Sod/Tazobactam 100 mls @ 200 mls/hr 11/14/19 18:00 Sod 4.5 gm/ Dextrose IVPB Q8H-IV [facility] Protocol Insulin Aspart 1 vial 11/14/19 16:30 Novolog Vial Sliding Scale - SQ BIDAC [facility] Protocol Morphine Sulfate 8 mg 11/14/19 13:02 Morphine Sulfate IVPB Q3H PRN PAIN LEVEL 7 - 10 Nicotine 7 mg 11/15/19 10:00 Nicoderm Patch - TD DAILY [facility] Ondansetron HCl 4 mg 11/14/19 13:10 Zofran Injection IVPUSH Q6H PRN NAUSEA AND/OR VOMITING Oxycodone HCl 7.5 mg 11/14/19 13:02 Roxicodone - PO Q4H PRN PAIN LEVEL 4 - 6 Oxycodone HCl 10 mg 11/14/19 13:10 Roxicodone - PO 11/15/19 13:09 Q4H PRN PAIN LEVEL 6-10 Promethazine HCl 12.5 mg 11/14/19 13:10 Phenergan Injection - IVPUSH Q6H PRN NAUSEA-FOR RESCUE AFTER 15 MIN ASSESSMENT/PLAN: Mr. Brewer is a 69-year-old male with a past medical history significant for ilio-cecal mass s/p percutaneous drainage of fluid collection on 10/18, iliopsoas abscess, s/p large right retroperitonea ilipsoas abscess drainage with pigtail catheter placement, COPD, Gallstones, colonic polyps, diverticulosis diabetes mellitus, and hypertension. # Right Lower Quadrant Pain - Latest CT scan yesterday: increased right lower quadrant complex mass involving cecum and distal ileum. Possible abscess - Surgery successfully preformed by Dr. Mccord - Procedure: "exploratory laparotomy, right pietro-colectomy with en-bloc resection of portion of proximal ileum" - Findings; "large cecal mass involving portion of proximal ileum, no obvious metastatic disease, appendix not visualized" - Blood cultures negative - Patient will continue to remain NPO - WBC 13 #Hypertension - placed on home amlodipine #Diabetes Mellitus - metformin held - BGM pre and post prandial -ISS DVT ppx - SCD's - Deffer AC in setting of surgery FEN IVF NS @ 75cc/hr NPO Visit type - Emergency Visit Emergency Visit: Yes ED Registration Date: 11/12/19 Care time: The patient presented to the Emergency Department on the above date and was hospitalized for further evaluation of their emergent condition. - New Patient This patient is new to me today: No - Critical Care Critical Care patient: No - Discharge Referral Referred to [facility] Med P.C.: No - Medication Review Med list reviewed for High Risk Meds patients 65 and older: Yes ATTENDING PHYSICIAN STATEMENT I saw and evaluated the patient. I reviewed the resident's note and discussed the case with the resident. I agree with the resident's findings and plan as documented. SUBJECTIVE: OBJECTIVE: ASSESSMENT AND PLAN:
--- NOTE | 2019-11-14 16:20 | PN ---
Teaching Attending Note Name of Resident: Leonidas Tavera ATTENDING PHYSICIAN STATEMENT I saw and evaluated the patient. I reviewed the resident's note and discussed the case with the resident. I agree with the resident's findings and plan as documented. SUBJECTIVE: Feels well post-op. Comfortable, pain well controlled. No Flatus. No fever/chills. OBJECTIVE: Afebrile Hemodynamcially Stable. SpO2 95% on 2L Last Vital Signs Temp Pulse Resp BP Pulse Ox 98.0 F 84 16 146/74 95 11/14/19 15:30 11/14/19 15:30 11/14/19 15:30 11/14/19 15:30 11/14/19 15:30 HEENT - Atraumatic Normocephalic. Heart - S1, s2, RRR Lungs - clear to auscultation Abdomen - Midline laparotomy incision with elvin in situ. Tender RLQ. Extremities - no edema, no calf tenderness. Neuro - AAO x 3. Tone/Power normal all extremities. Laboratory Results - last 24 hr 11/12/19 11/13/19 11/14/19 21:21 16:29 06:00 WBC RBC Hgb Hct MCV MCH MCHC RDW Plt Count MPV Sodium Potassium Chloride Carbon Dioxide Anion Gap BUN Creatinine Est GFR (CKD-EPI)AfAm Est GFR (CKD-EPI)NonAf POC Glucometer 97 84 Random Glucose Calcium Phosphorus Magnesium COVID-19 ([facility]) Not detected 11/14/19 11/14/19 06:34 06:34 WBC 13.0 H RBC 5.29 Hgb 16.0 Hct 49.3 H MCV 93.2 MCH 30.2 MCHC 32.4 RDW 18.1 H Plt Count 214 MPV 8.9 Sodium 140 Potassium 3.6 Chloride 104 Carbon Dioxide 24 Anion Gap 12 BUN 11.9 Creatinine 0.8 Est GFR (CKD-EPI)AfAm 107.13 Est GFR (CKD-EPI)NonAf 92.44 POC Glucometer Random Glucose 82 Calcium 8.8 Phosphorus 3.3 Magnesium 2.3 COVID-19 ([facility]) Current Medications Generic Name Dose Route Start Last Admin Trade Name Freq PRN Reason Stop Dose Admin Acetaminophen 650 mg 11/14/19 13:02 Tylenol - PO Q4H PRN FEVER Amlodipine Besylate 10 mg 11/15/19 10:00 Norvasc - PO DAILY [facility] Enoxaparin Sodium 40 mg 11/16/19 10:00 Lovenox - SQ DAILY [facility] Fentanyl 50 mcg 11/14/19 13:10 Sublimaze Injection - IVPUSH [id number] PRN PAIN-PACU ORDER X 4 DOSES ONLY Famotidine/Sodium Chloride 20 mg in 50 mls @ 100 mls/hr 11/14/19 22:00 Pepcid 20 Mg Premixed Ivpb - IVPB BID [facility] Sodium Chloride 1,000 mls @ 75 mls/hr 11/14/19 13:19 Normal Saline - IV ASDIR [facility] Piperacillin Sod/Tazobactam 100 mls @ 200 mls/hr 11/14/19 18:00 Sod 4.5 gm/ Dextrose IVPB Q8H-IV [facility] Protocol Insulin Aspart 1 vial 11/14/19 16:30 Novolog Vial Sliding Scale - SQ BIDAC [facility] Protocol Morphine Sulfate 8 mg 11/14/19 13:02 Morphine Sulfate IVPB Q3H PRN PAIN LEVEL 7 - 10 Nicotine 7 mg 11/15/19 10:00 Nicoderm Patch - TD DAILY [facility] Ondansetron HCl 4 mg 11/14/19 13:10 Zofran Injection IVPUSH Q6H PRN NAUSEA AND/OR VOMITING Oxycodone HCl 7.5 mg 11/14/19 13:02 Roxicodone - PO Q4H PRN PAIN LEVEL 4 - 6 Oxycodone HCl 10 mg 11/14/19 13:10 Roxicodone - PO 11/15/19 13:09 Q4H PRN PAIN LEVEL 6-10 Promethazine HCl 12.5 mg 11/14/19 13:10 Phenergan Injection - IVPUSH Q6H PRN NAUSEA-FOR RESCUE AFTER 15 MIN Home Medications Medication Instructions Recorded Amlodipine Besylate 5 mg PO DAILY 11/12/19 ASSESSMENT AND PLAN: 69 year old male smoker with HTN, with recent history of ruptured appendix, inflammatory mass in cecum with previous IR guided abscess drainage (declined s urgical resection in october and wanted to be treated conservatively for presumed perforated appendicitis), presents with recurrence of RLQ abdominal pain, found to have persistent inflammatory mass in RLQ with leukocytosis. 1. Inflammatory Complex Mass RLQ involving terminal ileum Immediately post-op s/p ex-laparotomy /R hemiclectomy/resection proximal ileum/omental patch Feeling well, pain well controlled, no flatus. Advance diet as per Surgery IV hydration IV Zosyn Diet advancement as per Sx. 2. HTN - Continue Norvasc 3. DM 2 - diet controlled. No longer on DM medications. Maintain on Novolog sliding scale as in-patient. DVT Px - Lovenox SQ.
[2019-11-14] MEDS: oxyCODONE HCL 5 MG TABLET PO PRN (20:38)
[2019-11-14] MEDS: FAMOTIDINE 20 MG/50 ML IVPB 20 MG/50 ML MG IVPB SCH (22:01)
--- NOTE | 2019-11-15 01:01 | OP ---
DATE OF OPERATION: 11/14/2019 PREOPERATIVE DIAGNOSIS: Inflammatory mass in the right lower quadrant. Rule out chronic appendicitis versus cancer. POSTOPERATIVE DIAGNOSIS: Inflammatory mass in the right lower quadrant. Rule out chronic appendicitis versus cancer. PROCEDURE: Exploratory laparotomy, right hemicolectomy with end block resection of portion of proximal ileum, omental patch, lavage. SURGEON: Hugo Mccord DO. SERVICE DESK DIRECTOR: Alhaji Salinas MD. ANESTHESIOLOGIST: Hugo Johnson MD. SPECIMEN: Right hemicolectomy with end block resection of an approximately 12 inches of proximal ileum. BLOOD LOSS: Approximately 30 mL. DRAINS: None. DISPOSITION: To recovery room in stable condition. FINDINGS: A large mass fixed to the right lower quadrant abdominal wall involving the cecum. The appendix was not identified. There was a loop of proximal ileum which was attached to this mass which was resected with the right colon en bloc. BRIEF HISTORY: This is a 69-year-old male who in October of this year presented to [facility] with an inflammatory mass and abscess in the right lower quadrant that was felt to be either appendicitis versus malignancy. The patient was offered an open colectomy at that time and wished to attempt conservative management. He had IR drainage of 2 collections, eventually got better with antibiotics, was discharged home. Eventually had his drains removed with fistulograms that were negative. He was doing well at home with plans for a colonoscopy and interval appendectomy when this week he developed abdominal pain. He came back to [facility] and CAT scan showed inflammatory mass 7 cm in size basically unchanged form his initial admission, except this time there were no abscesses. At this time he was agreeable to surgical resection because of the likelihood this could be a malignancy. DESCRIPTION OF PROCEDURE: The patient was placed in supine position, after general anesthesia was initiated. The abdomen was prepped and draped in sterile fashion. The patient was on Zosyn antibiotic. A vertical incision was made from approximately 4 inches above his umbilicus to approximately 3 inches below going to the left side of his umbilicus. Scalpel was used to go through skin and subcutaneous tissue. The fascia was opened in the midline with cautery. The peritoneum was entered sharply under direct visualization. Upon entering the abdominal cavity, the large mass which was also palpable under sedation prior to incision was felt. It was fixed to the anterior lateral abdominal wall. It was dissected off the abdominal wall using electrocautery as well as finger fracturing. There was a loop of proximal ileum which was stuck to the wall as well as the mass and the mass itself which was mostly taking up the space of the cecum. The appendix was not identified. Once the mass was dissected off the anterior lateral abdominal wall, the ascending colon was mobilized, and hepatic flexure takedown was done. At this point, the tumor was brought into the operative field completely. The proximal ileum had an approximately 7-inch segment that was stuck to the cecum. There was significant bowel distal to the segment which was uninvolved. Decision was made to do an end block resection in case this was a cancer and to do anastomosis of the small bowel as well as the ileocolonic anastomosis. A small bowel was divided proximal and distal to where it was attached to the cecum leaving approximately a 1-foot segment of proximal ileum attached to the cecum. A [id number] anastomosis was done with a CHRISSY 80 blue load stapler and a TA60 to close anastomosis. The anastomosis was inspected. It was intact. There was no bleeding, no breaks or sign of ischemia. It was of adequate size based on palpation. was able to go from proximal to distal and distal to proximal and on visual inspection. The mesentery defect was closed with running 3-0 Vicryl. Now with the small bowel resected with the loose 1-piece section remaining on the tumor, a right hemicolectomy was done. The terminal ileum was resected approximately 6 inches proximal to the cecum. The resection was then taken at the proximal transverse colon. A [id number] anastomosis was done, and again a TA60 blue load stapler was used to close the defect. The ileal colic and left colic pedicles were taken with LigaSure device as well as 0 silk ties, and the right colon with attached ileum was sent to pathology marked as specimen and stitch marked terminal ileum. The mesenteric defect was closed of the ileocolonic anastomosis with a running 3-0 Vicryl suture. The anastomosis was inspected, it appeared viable. The elvin going across the transverse staple line were intact. was able to pass from proximal to distal, distal to proximal. At this point, the liver was palpated, it was smooth, there was no sign of metastatic disease. There were somewhat enlarged lymph nodes noted in the right colon mesentery, it was unclear if these were reactive or malignant. There was no ascites noted. The remainder of the colon was palpated. There were no gross tumors noted, and the omentum was clean without sign of metastatic disease. Where the tumor had been taken off of the abdominal sidewall, there was still inflammatory tissue versus malignant tissue left behind. This was unable to be safely completely removed due to proximity of structures such as the ureter, the iliac vessels and nerves. At this point, a vigorous lavage was done until return was clear. There was no pus noted, and decision was made not to leave a drain. The midline fascia was closed with running PDS suture number 1. The wound was irrigated, and lightly packed, and thus left open. Overall the patient tolerated the procedure well. Disposition was to recovery room in stable condition. At the termination of the case, the pathology was unavailable if this was a cancer or inflammatory condition. DO MINH GUTIÉRREZ/[id number] MTDArmani
[2019-11-15] MEDS ORDERED: PT OWN MED DRAWER 7, Y5N ONE (01:37)
[2019-11-15] MEDS ORDERED: DEXTROSE 5%-WATER 100 ML IVPB ONE ×3 (01:38→15:51)
[2019-11-15] MEDS ORDERED: PIPERACILLIN/TAZOBACTAM 4.5 GM VIAL IVPB ONE ×3 (01:38→15:51)
[2019-11-15] MEDS: PIPERACILLIN/TAZOB 4.5 GM 4.5 GM in DEXTROSE 5%-WATER 100 ML IVPB SCH ×3 (01:54→17:01)
[2019-11-15] MEDS: oxyCODONE HCL 5 MG TABLET PO PRN ×4 (01:59→17:43)
[2019-11-15] MEDS: SODIUM CHLORIDE 1,000 ML IV SCH ×2 (05:36→16:24)
[2019-11-15] MEDS: INSULIN SLIDING SCALE (NOVOLOG) 1 VIAL SQ SCH ×2 (06:40→16:28)
[2019-11-15 08:21] LABS: HEMATOCRIT 38.9 % (35.4-49); HEMOGLOBIN 12.5 GM/dL (11.7-16.9); MCH 29.8 pg (25.7-33.7); MCHC 32.1 g/dl (32.0-35.9); MEAN CELL VOLUME 92.7 fl (80-96); PLATELET COUNT 200 K/MM3 (134-434); RDW 17.5 % (11.9-15.9); WHITE BLOOD COUNT 12.7 K/mm3 (4.0-10.0)
--- NOTE | 2019-11-15 08:21 | PN ---
Progress Note (short form) - Note Progress Note: Anesthesia postop note 69 y/o M s/p GA/tap blocks for hemicolectomy POD#1, vss, aaox3, pain well controlled, no complaints. No anesthesia complications.
--- NOTE | 2019-11-15 08:24 | PN ---
Progress Note (short form) - Note Progress Note: POD 1, s/p exploratory laparotomy, right pietro-colectomy with en-bloc resection of portion of proximal ileum Pt seen and examined. Reports he is doing "okay". No issues overnight. Pain controlled well with current pain regimen. Has been oob ambulating. Voiding without issue. No flatus yet. Denies cp/sob, n/v/d. Vital Signs Temp 98.1 F 11/15/19 06:00 Pulse 81 11/15/19 06:00 Resp 18 11/15/19 06:00 BP 155/78 11/15/19 06:00 Pulse Ox 92 L 11/15/19 06:00 Intake & Output 11/14/19 11/14/19 11/15/19 11:59 23:59 11:59 Intake Total 1000 300 Output Total 200 Balance 800 300 Intake: IV 1000 300 Output: Estimated Blood Loss 200 Other: Voiding Method Toilet Urinal Urinal Bowel Movement No CBC, BMP 11/15/19 07:05 11/15/19 07:05 Gen: awake, alert, nad Resp: unlabored on RA Abdo: soft, minimal ttp in llq and incision site, incision intact with dermabond in place, no erythema or drainage. Hypoactive bowel sounds. A/P: 69 y/o M w/ PMHx DM, HTN (on amlodipine), recent ruptured appendicitis (admitted to [facility] 10/14-10/21) s/p IR drain placement (10/18 x2 drains) re-admitted 11/11 with new rlq pain, found to have large complex mass involving the cecum and distal ileum, now POD 1, s/p exploratory laparotomy, right pietro-colectomy with en-bloc resection of portion of proximal ileum. afebrile, vss labs pending -continue pain regimen as ordered -oob as tolerated -serial abdo exams -npo -avoid bowel meds unless otherwise specified by surgery -abx per ID -remainder of care per medicine d/w attending Dr Sandoval
[2019-11-15] MEDS: amLODIPine BESYLATE 10 MG TABLET (FP) PO SCH ×2 (08:26→09:06)
[2019-11-15] MEDS: NICOTINE 7 MG/24 HOURS TOPICAL PATCH TD SCH ×2 (08:26→09:06)
[2019-11-15] MEDS: FAMOTIDINE 20 MG/50 ML IVPB 20 MG/50 ML MG IVPB SCH ×3 (08:27→21:40)
[2019-11-15] MEDS ORDERED: DOCUSATE SODIUM 100 MG CAPSULE (FP) PO PRN (08:31)
[2019-11-15 09:03] LABS: BLOOD UREA NITROGEN 14.8 mg/dL (7-18); CALCIUM 8.6 mg/dL (8.5-10.1); CREATININE 0.7 mg/dL (0.55-1.3); MAGNESIUM 2.1 mg/dL (1.8-2.4); PHOSPHOROUS 3.4 mg/dL (2.5-4.9)
--- NOTE | 2019-11-15 09:43 | PN ---
Progress Note (short form) - Note Progress Note: surgery pt seen and examined. feels well. oob and voiding. only 500 on spirometer afebrile abd- soft, mild generalized tenderness. incision clean Laboratory Tests 11/15/19 07:05 WBC 12.7 H A/P 1) pod#1- right colectomy and small bowel resection for cecal mass- cont npo, cont ivf, 2) inflammatory mass- cont iv abx. follow path- appendictis vs neoplasm. expect prelim report tomorrow 3) prophylaxis- hold lovenox till tomorrow for risk of bleed. pepcid, oob, spirometer, 4) pain- morphine, tylenol, oxycodone 5) dm, htn- per medical team
--- NOTE | 2019-11-15 10:10 | PN ---
Progress Note, Physician History of Present Illness: stable s/p hemicolectomy - Current Medication List Current Medications: Active Medications Acetaminophen (Tylenol -) 650 mg PO Q4H PRN PRN Reason: FEVER Amlodipine Besylate (Norvasc -) 10 mg PO DAILY [facility] Last Admin: 11/15/19 09:06 Dose: Not Given Documented by: Enoxaparin Sodium (Lovenox -) 40 mg SQ DAILY [facility] Famotidine/Sodium Chloride (Pepcid 20 Mg Premixed Ivpb -) 20 mg in 50 mls @ 100 mls/hr IVPB BID [facility] Last Admin: 11/15/19 09:07 Dose: Not Given Documented by: Sodium Chloride (Normal Saline -) 1,000 mls @ 75 mls/hr IV ASDIR [facility] Last Admin: 11/15/19 05:36 Dose: 75 mls/hr Documented by: Piperacillin Sod/Tazobactam (Sod 4.5 gm/ Dextrose) 100 mls @ 200 mls/hr IVPB Q8H-IV [facility]; Protocol Last Admin: 11/15/19 09:45 Dose: 200 mls/hr Documented by: Insulin Aspart (Novolog Vial Sliding Scale -) 1 vial SQ BIDAC [facility]; Protocol Last Admin: 11/15/19 06:40 Dose: Not Given Documented by: Morphine Sulfate (Morphine Sulfate) 8 mg IVPB Q3H PRN PRN Reason: PAIN LEVEL 7 - 10 Last Admin: 11/14/19 17:33 Dose: 8 mg Documented by: Nicotine (Nicoderm Patch -) 7 mg TD DAILY [facility] Last Admin: 11/15/19 09:06 Dose: Not Given Documented by: Ondansetron HCl (Zofran Injection) 4 mg IVPUSH Q6H PRN PRN Reason: NAUSEA AND/OR VOMITING Oxycodone HCl (Roxicodone -) 7.5 mg PO Q4H PRN PRN Reason: PAIN LEVEL 4 - 6 Oxycodone HCl (Roxicodone -) 10 mg PO Q4H PRN PRN Reason: PAIN LEVEL 6-10 Stop: 11/15/19 13:09 Last Admin: 11/15/19 08:27 Dose: 10 mg Documented by: Promethazine HCl (Phenergan Injection -) 12.5 mg IVPUSH Q6H PRN PRN Reason: NAUSEA-FOR RESCUE AFTER 15 MIN - Objective Vital Signs: Vital Signs Temperature 98 F 11/15/19 08:34 Pulse Rate 91 H 11/15/19 08:34 Respiratory Rate 18 11/15/19 08:34 Blood Pressure 153/88 11/15/19 08:34 O2 Sat by Pulse Oximetry (%) 95 11/15/19 08:34 Constitutional: Yes: No Distress, Calm Cardiovascular: Yes: S1, S2 Respiratory: Yes: Regular, CTA Bilaterally Gastrointestinal: Yes: Normal Bowel Sounds, Soft Musculoskeletal: Yes: WNL Extremities: Yes: WNL Wound/Incision: Yes: Nettie Intact Neurological: Yes: Alert, Oriented Psychiatric: Yes: Alert, Oriented Labs: CBC, BMP 11/15/19 07:05 11/15/19 07:05 INR, PTT INR 0.99 (0.83-1.09) 11/12/19 14:30 Assessment/Plan this patient with multiple medical problems who had appendicitis treated conservatively and now coming back with increase in mass and probably abscess with leukocytosis #1 Right Lower Quadrant Pain #2 Hypertension #3 Diabetes Mellitus abd pain leukocytosis plan abx await for results npo hydration rest as per the team
--- NOTE | 2019-11-15 13:58 | PN ---
Teaching Attending Note Name of Resident: Leonidas Tavera ATTENDING PHYSICIAN STATEMENT I saw and evaluated the patient. I reviewed the resident's note and discussed the case with the resident. I agree with the resident's findings and plan as documented. SUBJECTIVE: Feels well post-op. Comfortable, pain well controlled. No Flatus. No fever/chills. OBJECTIVE: Afebrile Hemodynamcially Stable. Last Vital Signs Temp Pulse Resp BP Pulse Ox 98 F 91 H 18 153/88 95 11/15/19 08:34 11/15/19 08:34 11/15/19 09:00 11/15/19 08:34 11/15/19 09:00 Heart - S1, S2, RRR Lungs - clear to auscultation Abdomen - Midline laparotomy incision with elvin in situ. Reduced Bowel Sounds Extremities - no edema, no calf tenderness. Neuro - AAO x 3. Tone/Power normal all extremities. Laboratory Results - last 24 hr 11/13/19 11/14/19 11/15/19 02:30 16:56 06:08 WBC RBC Hgb Hct MCV MCH MCHC RDW Plt Count MPV Sodium Potassium Chloride Carbon Dioxide Anion Gap BUN Creatinine Est GFR (CKD-EPI)AfAm Est GFR (CKD-EPI)NonAf POC Glucometer 116 128 Random Glucose Calcium Phosphorus Magnesium Carcinoembryonic Ag 5.0 H 11/15/19 11/15/19 07:05 07:05 WBC 12.7 H RBC 4.20 Hgb 12.5 Hct 38.9 D MCV 92.7 MCH 29.8 MCHC 32.1 RDW 17.5 H Plt Count 200 MPV 9.0 Sodium 139 Potassium 4.0 Chloride 106 Carbon Dioxide 26 Anion Gap 7 L BUN 14.8 Creatinine 0.7 Est GFR (CKD-EPI)AfAm 113.18 Est GFR (CKD-EPI)NonAf 97.65 POC Glucometer Random Glucose 125 H Calcium 8.6 Phosphorus 3.4 Magnesium 2.1 Carcinoembryonic Ag Current Medications Generic Name Dose Route Start Last Admin Trade Name Freq PRN Reason Stop Dose Admin Acetaminophen 650 mg 11/14/19 13:02 Tylenol - PO Q4H PRN FEVER Amlodipine Besylate 10 mg 11/15/19 10:00 11/15/19 09:06 Norvasc - PO Not Given DAILY [facility] Enoxaparin Sodium 40 mg 11/16/19 10:00 Lovenox - SQ DAILY [facility] Famotidine/Sodium Chloride 20 mg in 50 mls @ 100 mls/hr 11/14/19 22:00 11/15/19 09:07 Pepcid 20 Mg Premixed Ivpb - IVPB Not Given BID [facility] Sodium Chloride 1,000 mls @ 75 mls/hr 11/14/19 13:19 11/15/19 05:36 Normal Saline - IV 75 mls/hr ASDIR [facility] Administration Piperacillin Sod/Tazobactam 100 mls @ 200 mls/hr 11/14/19 18:00 11/15/19 09:45 Sod 4.5 gm/ Dextrose IVPB 200 mls/hr Q8H-IV [facility] Administration Protocol Insulin Aspart 1 vial 11/14/19 16:30 11/15/19 06:40 Novolog Vial Sliding Scale - SQ Not Given BIDAC [facility] Protocol Morphine Sulfate 8 mg 11/14/19 13:02 11/14/19 17:33 Morphine Sulfate IVPB 8 mg Q3H PRN Administration PAIN LEVEL 7 - 10 Nicotine 7 mg 11/15/19 10:00 11/15/19 09:06 Nicoderm Patch - TD Not Given DAILY [facility] Ondansetron HCl 4 mg 11/14/19 13:10 Zofran Injection IVPUSH Q6H PRN NAUSEA AND/OR VOMITING Oxycodone HCl 7.5 mg 11/14/19 13:02 Roxicodone - PO Q4H PRN PAIN LEVEL 4 - 6 Promethazine HCl 12.5 mg 11/14/19 13:10 Phenergan Injection - IVPUSH Q6H PRN NAUSEA-FOR RESCUE AFTER 15 MIN Home Medications Medication Instructions Recorded Amlodipine Besylate 5 mg PO DAILY 11/12/19 ASSESSMENT AND PLAN: 69 year old male smoker with HTN, with recent history of ruptured appendix, inflammatory mass in cecum with previous IR guided abscess drainage (declined surgical resection in october and wanted to be treated conservatively for presumed perforated appendicitis), presents with recurrence of RLQ abdominal pain, found to have persistent inflammatory mass in RLQ with leukocytosis. 1. Inflammatory Complex Mass RLQ involving terminal ileum POD 2 s/p ex-laparotomy /R hemiclectomy/resection proximal ileum/omental patch Feeling well, pain well controlled, no flatus. Advance diet as per Surgery IV hydration IV Zosyn Awaiting surgical pathology report to exclude malignancy. 2. HTN - Continue Norvasc 3. DM 2 - diet controlled. No longer on DM medications. Maintain on Novolog sliding scale as in-patient once diet resumes. DVT Px - Lovenox SQ.
--- NOTE | 2019-11-15 16:12 | PN ---
Physical Exam: SUBJECTIVE: Patient seen and examined at bedside. patient is POD#0 with mild lower abdominal discomfort on palpitation. Patient denies SOB, chest pain, or diaphoresis. Patient was spoken to by surgery team about bowel resection. Resection sent to pathology lab for further investigation for possible malignancy. OBJECTIVE: Vital Signs Period Temp Pulse Resp BP Sys/Ayala Pulse Ox Last 24 Hr 97.4 F-98.1 F 81-91 18-18 133-155/73-88 92-100 GENERAL: The patient is awake, alert, and fully oriented, in no acute distress. LUNGS: Breath sounds equal, clear to auscultation bilaterally, no wheezes, no crackles, no accessory muscle use. HEART: Regular rate and rhythm, S1, S2 without murmur, rub or gallop. ABDOMEN: lower midline open laparotomy incision with adhesive and elvin. Lower R and L quandrant pain upon light palpation. EXTREMITIES: 2+ pulses, warm, well-perfused, no edema. SKIN: Warm, dry, normal turgor, no rashes or lesions noted Laboratory Results - last 24 hr 11/13/19 11/14/19 11/15/19 02:30 16:56 06:08 WBC RBC Hgb Hct MCV MCH MCHC RDW Plt Count MPV Sodium Potassium Chloride Carbon Dioxide Anion Gap BUN Creatinine Est GFR (CKD-EPI)AfAm Est GFR (CKD-EPI)NonAf POC Glucometer 116 128 Random Glucose Calcium Phosphorus Magnesium Carcinoembryonic Ag 5.0 H 11/15/19 11/15/19 11/15/19 07:05 07:05 16:00 WBC 12.7 H RBC 4.20 Hgb 12.5 Hct 38.9 D MCV 92.7 MCH 29.8 MCHC 32.1 RDW 17.5 H Plt Count 200 MPV 9.0 Sodium 139 Potassium 4.0 Chloride 106 Carbon Dioxide 26 Anion Gap 7 L BUN 14.8 Creatinine 0.7 Est GFR (CKD-EPI)AfAm 113.18 Est GFR (CKD-EPI)NonAf 97.65 POC Glucometer 107 Random Glucose 125 H Calcium 8.6 Phosphorus 3.4 Magnesium 2.1 Carcinoembryonic Ag Active Medications Generic Name Dose Route Start Last Admin Trade Name Freq PRN Reason Stop Dose Admin Acetaminophen 650 mg 11/14/19 13:02 Tylenol - PO Q4H PRN FEVER Amlodipine Besylate 10 mg 08/13/20 10:00 11/15/19 09:06 Norvasc - PO Not Given DAILY [facility] Enoxaparin Sodium 40 mg 11/16/19 10:00 Lovenox - SQ DAILY [facility] Famotidine/Sodium Chloride 20 mg in 50 mls @ 100 mls/hr 11/14/19 22:00 11/15/19 09:07 Pepcid 20 Mg Premixed Ivpb - IVPB Not Given BID [facility] Sodium Chloride 1,000 mls @ 75 mls/hr 11/14/19 13:19 11/15/19 05:36 Normal Saline - IV 75 mls/hr ASDIR [facility] Administration Piperacillin Sod/Tazobactam 100 mls @ 200 mls/hr 11/14/19 18:00 11/15/19 09:45 Sod 4.5 gm/ Dextrose IVPB 200 mls/hr Q8H-IV [facility] Administration Protocol Insulin Aspart 1 vial 11/14/19 16:30 11/15/19 06:40 Novolog Vial Sliding Scale - SQ Not Given BIDAC [facility] Protocol Morphine Sulfate 8 mg 11/14/19 13:02 11/14/19 17:33 Morphine Sulfate IVPB 8 mg Q3H PRN Administration PAIN LEVEL 7 - 10 Nicotine 7 mg 11/15/19 10:00 11/15/19 09:06 Nicoderm Patch - TD Not Given DAILY [facility] Ondansetron HCl 4 mg 11/14/19 13:10 Zofran Injection IVPUSH Q6H PRN NAUSEA AND/OR VOMITING Oxycodone HCl 7.5 mg 11/14/19 13:02 Roxicodone - PO Q4H PRN PAIN LEVEL 4 - 6 Promethazine HCl 12.5 mg 11/14/19 13:10 Phenergan Injection - IVPUSH Q6H PRN NAUSEA-FOR RESCUE AFTER 15 MIN ASSESSMENT/PLAN: Mr. Brewer is a 69-year-old male with a past medical history significant for ilio-cecal mass s/p percutaneous drainage of fluid collection on 10/18, iliopsoas abscess, s/p large right retroperitonea ilipsoas abscess drainage with pigtail catheter placement, COPD, Gallstones, colonic polyps, diverticulosis diabetes mellitus, and hypertension. # Right Lower Quadrant Pain/RLQ inflammatory mass resection - Patient is currently POD 1, s/p exploratory laparotomy, right pietro-colectomy with en-bloc resection of portion of proximal ileum - sample sent to pathology for identification of possible malignancy - patient reports feeling well with mild lower abdominal pain - pain medication PRN - currently day 3 of zosyn #HTN - patient continued on home bp medication - Norvasc #DM 2 - patient reports losing weight and maintains DM throgh proper diet - Maintain on Novolog sliding scale as diet progresses #DVT Px - Lovenox SQ Visit type - Emergency Visit Emergency Visit: Yes ED Registration Date: 11/12/19 Care time: The patient presented to the Emergency Department on the above date and was hospitalized for further evaluation of their emergent condition. - New Patient This patient is new to me today: No - Critical Care Critical Care patient: No - Discharge Referral Referred to [facility] No - Medication Review Med list reviewed for High Risk Meds patients 65 and older: Yes ATTENDING PHYSICIAN STATEMENT I saw and evaluated the patient. I reviewed the resident's note and discussed the case with the resident. I agree with the resident's findings and plan as documented. SUBJECTIVE: OBJECTIVE: ASSESSMENT AND PLAN:
[2019-11-16] MEDS: oxyCODONE HCL 5 MG TABLET PO PRN ×2 (01:06→10:21)
[2019-11-16] MEDS ORDERED: PIPERACILLIN/TAZOBACTAM 4.5 GM VIAL IVPB ONE ×3 (01:49→18:16)
[2019-11-16] MEDS ORDERED: DEXTROSE 5%-WATER 100 ML IVPB ONE ×3 (01:49→18:16)
[2019-11-16] MEDS: PIPERACILLIN/TAZOB 4.5 GM 4.5 GM in DEXTROSE 5%-WATER 100 ML IVPB SCH ×3 (02:41→18:20)
[2019-11-16] MEDS: INSULIN SLIDING SCALE (NOVOLOG) 1 VIAL SQ SCH ×2 (06:35→17:17)
[2019-11-16 08:28] LABS: BASO % 0.7 % (0-2.0); BLOOD UREA NITROGEN 13.7 mg/dL (7-18); CALCIUM 8.5 mg/dL (8.5-10.1); CREATININE 0.7 mg/dL (0.55-1.3); EOS % 0.1 % (0-4.5); HEMATOCRIT 37.3 % (35.4-49); HEMOGLOBIN 12.2 GM/dL (11.7-16.9); LYMPH % 10.6 % (8-40); MAGNESIUM 2.1 mg/dL (1.8-2.4); MCH 30.4 pg (25.7-33.7); MCHC 32.7 g/dl (32.0-35.9); MEAN CELL VOLUME 93.1 fl (80-96); MEAN PLT VOLUME 9.1 fl (7.5-11.1); MONO % 7.5 % (3.8-10.2); NEUT % 81.1 % (42.8-82.8); PHOSPHOROUS 2.4 mg/dL (2.5-4.9); PLATELET COUNT 198 K/MM3 (134-434); POTASSIUM 3.6 mmol/L (3.5-5.1); RBC 4.01 M/mm3 (4.00-5.60); RDW 17.4 % (11.9-15.9); WHITE BLOOD COUNT 13.3 K/mm3 (4.0-10.0)
[2019-11-16] MEDS ORDERED: POTASSIUM PHOSPHATE 15 MM in DEXTROSE 5%-WATER - 250 ML IVPB ONE (08:44)
[2019-11-16] MEDS ORDERED: PT OWN MED DRAWER 7, Y5N ONE (10:01)
[2019-11-16] MEDS: FAMOTIDINE 20 MG/50 ML IVPB 20 MG/50 ML MG IVPB SCH ×2 (10:22→21:52)
[2019-11-16] MEDS: amLODIPine BESYLATE 10 MG TABLET (FP) PO SCH (10:22)
[2019-11-16] MEDS: ENOXAPARIN NA (PORCINE) 40 MG/0.4 ML DISP.SYRIN SQ SCH (10:23)
[2019-11-16] MEDS: NICOTINE 7 MG/24 HOURS TOPICAL PATCH TD SCH (10:25)
--- NOTE | 2019-11-16 11:31 | PN ---
Progress Note, Physician History of Present Illness: stable s/p hemicolectomy - Current Medication List Current Medications: Active Medications Acetaminophen (Tylenol -) 650 mg PO Q4H PRN PRN Reason: FEVER Amlodipine Besylate (Norvasc -) 10 mg PO DAILY [facility] Last Admin: 11/16/19 10:22 Dose: 10 mg Documented by: Enoxaparin Sodium (Lovenox -) 40 mg SQ DAILY [facility] Last Admin: 11/16/19 10:23 Dose: 40 mg Documented by: Famotidine/Sodium Chloride (Pepcid 20 Mg Premixed Ivpb -) 20 mg in 50 mls @ 100 mls/hr IVPB BID [facility] Last Admin: 11/16/19 10:22 Dose: 100 mls/hr Documented by: Sodium Chloride (Normal Saline -) 1,000 mls @ 75 mls/hr IV ASDIR [facility] Last Admin: 11/15/19 16:24 Dose: Not Given Documented by: Piperacillin Sod/Tazobactam (Sod 4.5 gm/ Dextrose) 100 mls @ 200 mls/hr IVPB Q8H-IV [facility]; Protocol Last Admin: 11/16/19 10:22 Dose: 200 mls/hr Documented by: Potassium Phosphate 15 mm/ (Dextrose) 255 mls @ 62.5 mls/hr IVPB ONCE ONE Stop: 11/16/19 12:48 Insulin Aspart (Novolog Vial Sliding Scale -) 1 vial SQ BIDAC [facility]; Protocol Last Admin: 11/16/19 06:35 Dose: Not Given Documented by: Morphine Sulfate (Morphine Sulfate) 8 mg IVPB Q3H PRN PRN Reason: PAIN LEVEL 7 - 10 Last Admin: 11/14/19 17:33 Dose: 8 mg Documented by: Nicotine (Nicoderm Patch -) 7 mg TD DAILY [facility] Last Admin: 11/16/19 10:25 Dose: 7 mg Documented by: Ondansetron HCl (Zofran Injection) 4 mg IVPUSH Q6H PRN PRN Reason: NAUSEA AND/OR VOMITING Oxycodone HCl (Roxicodone -) 7.5 mg PO Q4H PRN PRN Reason: PAIN LEVEL 4 - 6 Last Admin: 11/16/19 10:21 Dose: 7.5 mg Documented by: Promethazine HCl (Phenergan Injection -) 12.5 mg IVPUSH Q6H PRN PRN Reason: NAUSEA-FOR RESCUE AFTER 15 MIN - Objective Vital Signs: Vital Signs Temperature 98 F 11/16/19 10:00 Pulse Rate 88 11/16/19 10:00 Respiratory Rate 18 11/16/19 10:00 Blood Pressure 144/82 11/16/19 10:00 O2 Sat by Pulse Oximetry (%) 94 L 11/16/19 10:00 Constitutional: Yes: No Distress, Calm Eyes: Yes: Conjunctiva Clear Cardiovascular: Yes: S1, S2 Respiratory: Yes: Regular, CTA Bilaterally Gastrointestinal: Yes: Normal Bowel Sounds, Soft Musculoskeletal: Yes: WNL Extremities: Yes: Other Neurological: Yes: Alert, Oriented Psychiatric: Yes: Alert Labs: CBC, BMP 11/16/19 06:53 11/16/19 06:53 INR, PTT INR 0.99 (0.83-1.09) 11/12/19 14:30 Assessment/Plan this patient with multiple medical problems who had appendicitis treated conservatively and now coming back with increase in mass and probably abscess with leukocytosis #1 Right Lower Quadrant Pain #2 Hypertension #3 Diabetes Mellitus abd pain leukocytosis plan abx npo hydration rest as per the team still awaiting return of gi function
--- NOTE | 2019-11-16 12:40 | PN ---
Progress Note (short form) - Note Progress Note: POD 2, s/p exploratory laparotomy, right pietro-colectomy with en-bloc resection of portion of proximal ileum Pt seen and examined. Reports he is doing "okay". No issues overnight. Pain controlled well with current pain regimen. Has been oob ambulating. Voiding without issue. No flatus yet. Denies cp/sob, n/v/d. Pt states he was given breakfast this morning, by accident, but only had a little coffee before it was taken away. Last Vital Signs Temp Pulse Resp BP Pulse Ox 98 F 88 18 144/82 94 L 11/16/19 10:00 11/16/19 10:00 11/16/19 10:00 11/16/19 10:00 11/16/19 10:00 CBC, BMP 11/16/19 06:53 11/16/19 06:53 Gen: awake, alert, nad Resp: unlabored on RA Abdo: soft, minimal ttp in llq and incision site, incision intact with dermabond in place, no erythema or drainage. Hypoactive bowel sounds. A/P: 69 y/o M w/ PMHx DM, HTN (on amlodipine), recent ruptured appendicitis (admitted to [facility] 10/14-10/21) s/p IR drain placement (10/18 x2 drains) re-admitted 11/11 with new rlq pain, found to have large complex mass involving the cecum and distal ileum, now POD 1, s/p exploratory laparotomy, right pietro-colectomy with en-bloc resection of portion of proximal ileum. afebrile, vss labs pending -continue pain regimen as ordered -oob as tolerated -serial abdo exams -npo -avoid bowel meds unless otherwise specified by surgery -abx per ID -remainder of care per medicine
--- NOTE | 2019-11-16 14:11 | PN ---
Teaching Attending Note Name of Resident: Leonidas Tavera ATTENDING PHYSICIAN STATEMENT I saw and evaluated the patient. I reviewed the resident's note and discussed the case with the resident. I agree with the resident's findings and plan as documented. SUBJECTIVE: Feels well post-op. Comfortable, pain well controlled. No Flatus. No fever/chills. OBJECTIVE: Afebrile Hemodynamcially Stable. Last Vital Signs Temp Pulse Resp BP Pulse Ox 98 F 88 18 144/82 94 L 11/16/19 10:11/16/19 10:11/16/19 10:11/16/19 10:11/16/19 10:00 Heart - S1, S2, RRR Lungs - clear to auscultation Abdomen - Midline laparotomy incision with elvin in situ. Incision site clean. Reduced Bowel Sounds Extremities - no edema, no calf tenderness. Neuro - AAO x 3. Tone/Power normal all extremities. Laboratory Results - last 24 hr 11/15/19 11/16/19 11/16/19 16:00 06:34 06:53 WBC 13.3 H RBC 4.01 Hgb 12.2 Hct 37.3 MCV 93.1 MCH 30.4 MCHC 32.7 RDW 17.4 H Plt Count 198 MPV 9.1 Absolute Neuts (auto) 10.8 H Neutrophils % 81.1 Lymphocytes % 10.6 D Monocytes % 7.5 Eosinophils % 0.1 Basophils % 0.7 Nucleated RBC % 0 Sodium Potassium Chloride Carbon Dioxide Anion Gap BUN Creatinine Est GFR (CKD-EPI)AfAm Est GFR (CKD-EPI)NonAf POC Glucometer 107 104 Random Glucose Calcium Phosphorus Magnesium 11/16/19 11/16/19 06:53 11:53 WBC RBC Hgb Hct MCV MCH MCHC RDW Plt Count MPV Absolute Neuts (auto) Neutrophils % Lymphocytes % Monocytes % Eosinophils % Basophils % Nucleated RBC % Sodium 137 Potassium 3.6 Chloride 102 Carbon Dioxide 29 Anion Gap 6 L BUN 13.7 Creatinine 0.7 Est GFR (CKD-EPI)AfAm 113.18 Est GFR (CKD-EPI)NonAf 97.65 POC Glucometer 108 Random Glucose 97 Calcium 8.5 Phosphorus 2.4 L Magnesium 2.1 Current Medications Generic Name Dose Route Start Last Admin Trade Name Freq PRN Reason Stop Dose Admin Acetaminophen 650 mg 11/14/19 13:02 Tylenol - PO Q4H PRN FEVER Amlodipine Besylate 10 mg 11/15/19 10:00 11/16/19 10:22 Norvasc - PO 10 mg DAILY RIO Administration Enoxaparin Sodium 40 mg 11/16/19 10:00 11/16/19 10:23 Lovenox - SQ 40 mg DAILY RIO Administration Famotidine/Sodium Chloride 20 mg in 50 mls @ 100 mls/hr 11/14/19 22:00 11/16/19 10:22 Pepcid 20 Mg Premixed Ivpb - IVPB 100 mls/hr BID RIO Administration Sodium Chloride 1,000 mls @ 75 mls/hr 11/14/19 13:19 11/15/19 16:24 Normal Saline - IV Not Given ASDIR RIO Piperacillin Sod/Tazobactam 100 mls @ 200 mls/hr 11/14/19 18:00 11/16/19 10:22 Sod 4.5 gm/ Dextrose IVPB 200 mls/hr Q8H-IV RIO Administration Protocol Insulin Aspart 1 vial 11/14/19 16:30 11/16/19 06:35 Novolog Vial Sliding Scale - SQ Not Given BIDAC RIO Protocol Morphine Sulfate 8 mg 11/14/19 13:02 11/14/19 17:33 Morphine Sulfate IVPB 8 mg Q3H PRN Administration PAIN LEVEL 7 - 10 Nicotine 7 mg 11/15/19 10:00 11/16/19 10:25 Nicoderm Patch - TD 7 mg DAILY RIO Administration Ondansetron HCl 4 mg 11/14/19 13:10 Zofran Injection IVPUSH Q6H PRN NAUSEA AND/OR VOMITING Oxycodone HCl 7.5 mg 11/14/19 13:02 11/16/19 10:21 Roxicodone - PO 7.5 mg Q4H PRN Administration PAIN LEVEL 4 - 6 Promethazine HCl 12.5 mg 11/14/19 13:10 Phenergan Injection - IVPUSH Q6H PRN NAUSEA-FOR RESCUE AFTER 15 MIN Home Medications Medication Instructions Recorded Amlodipine Besylate 5 mg PO DAILY 11/12/19 ASSESSMENT AND PLAN: 69 year old male smoker with HTN, with recent history of ruptured appendix, inflammatory mass in cecum with previous IR guided abscess drainage (declined surgical resection in october and wanted to be treated conservatively for presumed perforated appendicitis), presents with recurrence of RLQ abdominal pain, found to have persistent inflammatory mass in RLQ with leukocytosis. 1. Inflammatory Complex Mass RLQ involving terminal ileum POD 3 s/p ex-laparotomy /R hemiclectomy/resection proximal ileum/omental patch Feeling well, pain well controlled, no flatus. Still NPO - Advance diet as per Surgery IV hydration IV Zosyn Monitor mild leukocytosis. No fever. Incentive Spirometry encouraged. Awaiting surgical pathology report to exclude malignancy. 2. HTN - Continue Norvasc 3. DM 2 - diet controlled. No longer on DM medications. Maintain on Novolog sliding scale as in-patient once diet resumes. 4. Hypophosphatemia - repleted. DVT Px - Lovenox SQ.
[2019-11-16] MEDS: SODIUM CHLORIDE 1,000 ML IV SCH (15:14)
--- NOTE | 2019-11-16 16:06 | PN ---
Progress Note (short form) - Note Progress Note: surgery pt seen and examined. feels well. oob and voiding. only 500 on spirometer afebrile abd- soft, mild generalized tenderness. incision clean Laboratory Tests 11/15/19 07:05 WBC 12.7 H A/P 1) pod#2- right colectomy and small bowel resection for cecal mass- cont npo, cont ivf, 2) inflammatory mass- cont iv abx. follow path- appendictis vs neoplasm. expect prelim report today-left message with pathology 3) prophylaxis- lovenox, pepcid, oob, spirometer, 4) pain- morphine, tylenol, oxycodone 5) dm, htn- per medical team 6) hypophosphatemia- replaced 7) lekocytosis- from inflammatory mass and surgical reaction. will follow. cont abx
--- NOTE | 2019-11-16 17:22 | PN ---
Physical Exam: SUBJECTIVE: Patient seen and examined OBJECTIVE: Vital Signs Period Temp Pulse Resp BP Sys/Ayala Pulse Ox Last 24 Hr 97.6 F-98 F 79-88 18-18 144-154/70-82 93-98 GENERAL: The patient is awake, alert, and fully oriented, in no acute distress. HEAD: Normal with no signs of trauma. EYES: PERRL, extraocular movements intact, sclera anicteric, conjunctiva clear. No ptosis. ENT: Ears normal, nares patent, oropharynx clear without exudates, moist mucous membranes. NECK: Trachea midline, full range of motion, supple. LUNGS: Breath sounds equal, clear to auscultation bilaterally, no wheezes, no crackles, no accessory muscle use. HEART: Regular rate and rhythm, S1, S2 without murmur, rub or gallop. ABDOMEN: Soft, nontender, nondistended, normoactive bowel sounds, no guarding, no rebound, no hepatosplenomegaly, no masses. EXTREMITIES: 2+ pulses, warm, well-perfused, no edema. NEUROLOGICAL: Cranial nerves II through XII grossly intact. Normal speech, gait not observed. PSYCH: Normal mood, normal affect. SKIN: Warm, dry, normal turgor, no rashes or lesions noted Laboratory Results - last 24 hr 11/16/19 11/16/19 11/16/19 06:34 06:53 06:53 WBC 13.3 H RBC 4.01 Hgb 12.2 Hct 37.3 MCV 93.1 MCH 30.4 MCHC 32.7 RDW 17.4 H Plt Count 198 MPV 9.1 Absolute Neuts (auto) 10.8 H Neutrophils % 81.1 Lymphocytes % 10.6 D Monocytes % 7.5 Eosinophils % 0.1 Basophils % 0.7 Nucleated RBC % 0 Sodium 137 Potassium 3.6 Chloride 102 Carbon Dioxide 29 Anion Gap 6 L BUN 13.7 Creatinine 0.7 Est GFR (CKD-EPI)AfAm 113.18 Est GFR (CKD-EPI)NonAf 97.65 POC Glucometer 104 Random Glucose 97 Calcium 8.5 Phosphorus 2.4 L Magnesium 2.1 11/16/19 11/16/19 11:53 16:58 WBC RBC Hgb Hct MCV MCH MCHC RDW Plt Count MPV Absolute Neuts (auto) Neutrophils % Lymphocytes % Monocytes % Eosinophils % Basophils % Nucleated RBC % Sodium Potassium Chloride Carbon Dioxide Anion Gap BUN Creatinine Est GFR (CKD-EPI)AfAm Est GFR (CKD-EPI)NonAf POC Glucometer 108 89 Random Glucose Calcium Phosphorus Magnesium Active Medications Generic Name Dose Route Start Last Admin Trade Name Freq PRN Reason Stop Dose Admin Acetaminophen 650 mg 11/14/19 13:02 Tylenol - PO Q4H PRN FEVER Amlodipine Besylate 10 mg 11/15/19 10:00 11/16/19 10:22 Norvasc - PO 10 mg DAILY RIO Administration Enoxaparin Sodium 40 mg 11/16/19 10:00 11/16/19 10:23 Lovenox - SQ 40 mg DAILY RIO Administration Famotidine/Sodium Chloride 20 mg in 50 mls @ 100 mls/hr 11/14/19 22:00 11/16/19 10:22 Pepcid 20 Mg Premixed Ivpb - IVPB 100 mls/hr BID RIO Administration Sodium Chloride 1,000 mls @ 75 mls/hr 11/14/19 13:19 11/16/19 15:14 Normal Saline - IV 75 mls/hr ASDIR RIO Administration Piperacillin Sod/Tazobactam 100 mls @ 200 mls/hr 11/14/19 18:00 11/16/19 10:22 Sod 4.5 gm/ Dextrose IVPB 200 mls/hr Q8H-IV RIO Administration Protocol Insulin Aspart 1 vial 11/14/19 16:30 11/16/19 17:17 Novolog Vial Sliding Scale - SQ Not Given BIDAC RIO Protocol Morphine Sulfate 8 mg 11/14/19 13:02 11/14/19 17:33 Morphine Sulfate IVPB 8 mg Q3H PRN Administration PAIN LEVEL 7 - 10 Nicotine 7 mg 11/15/19 10:00 11/16/19 10:25 Nicoderm Patch - TD 7 mg DAILY RIO Administration Ondansetron HCl 4 mg 11/14/19 13:10 Zofran Injection IVPUSH Q6H PRN NAUSEA AND/OR VOMITING Oxycodone HCl 7.5 mg 11/14/19 13:02 11/16/19 10:21 Roxicodone - PO 7.5 mg Q4H PRN Administration PAIN LEVEL 4 - 6 Promethazine HCl 12.5 mg 11/14/19 13:10 Phenergan Injection - IVPUSH Q6H PRN NAUSEA-FOR RESCUE AFTER 15 MIN ASSESSMENT/PLAN: ATTENDING PHYSICIAN STATEMENT I saw and evaluated the patient. I reviewed the resident's note and discussed the case with the resident. I agree with the resident's findings and plan as documented. SUBJECTIVE: OBJECTIVE: ASSESSMENT AND PLAN:
[2019-11-17] MEDS ORDERED: PIPERACILLIN/TAZOBACTAM 4.5 GM VIAL IVPB ONE ×3 (01:08→16:19)
[2019-11-17] MEDS ORDERED: DEXTROSE 5%-WATER 100 ML IVPB ONE ×3 (01:09→16:19)
[2019-11-17] MEDS: oxyCODONE HCL 5 MG TABLET PO PRN ×5 (01:24→22:28)
[2019-11-17] MEDS: PIPERACILLIN/TAZOB 4.5 GM 4.5 GM in DEXTROSE 5%-WATER 100 ML IVPB SCH ×3 (01:26→17:06)
[2019-11-17] MEDS: INSULIN SLIDING SCALE (NOVOLOG) 1 VIAL SQ SCH ×2 (06:09→16:57)
[2019-11-17 08:10] LABS: BASO % 0.5 % (0-2.0); EOS % 0.3 % (0-4.5); HEMATOCRIT 37.7 % (35.4-49); HEMOGLOBIN 12.6 GM/dL (11.7-16.9); LYMPH % 17.2 % (8-40); MCH 30.8 pg (25.7-33.7); MCHC 33.4 g/dl (32.0-35.9); MEAN CELL VOLUME 92.1 fl (80-96); MEAN PLT VOLUME 9.2 fl (7.5-11.1); MONO % 8.6 % (3.8-10.2); NEUT % 73.4 % (42.8-82.8); PLATELET COUNT 230 K/MM3 (134-434); RBC 4.09 M/mm3 (4.00-5.60); RDW 17.4 % (11.9-15.9); WHITE BLOOD COUNT 11.8 K/mm3 (4.0-10.0)
[2019-11-17] MEDS: NICOTINE 7 MG/24 HOURS TOPICAL PATCH TD SCH ×2 (08:27→09:29)
[2019-11-17] MEDS: amLODIPine BESYLATE 10 MG TABLET (FP) PO SCH ×2 (08:28→09:29)
[2019-11-17 08:41] LABS: BLOOD UREA NITROGEN 8.8 mg/dL (7-18); CALCIUM 8.4 mg/dL (8.5-10.1); CREATININE 0.5 mg/dL (0.55-1.3); MAGNESIUM 2.1 mg/dL (1.8-2.4); PHOSPHOROUS 2.9 mg/dL (2.5-4.9); POTASSIUM 3.8 mmol/L (3.5-5.1)
[2019-11-17] MEDS: FAMOTIDINE 20 MG/50 ML IVPB 20 MG/50 ML MG IVPB SCH ×2 (09:29→22:17)
[2019-11-17] MEDS: ENOXAPARIN NA (PORCINE) 40 MG/0.4 ML DISP.SYRIN SQ SCH (09:29)
--- NOTE | 2019-11-17 12:18 | PN ---
Physical Exam: SUBJECTIVE: Patient seen and examined at bedside. He denies passing flatus, or bowel movement. Denies subjective fevers, chills, shortness of breath, chest pain, palpitations, nausea, vomiting. OBJECTIVE: Vital Signs Period Temp Pulse Resp BP Sys/Ayala Pulse Ox Last 24 Hr 97.4 F-98.7 F 73-82 18-18 135-165/72-90 92-96 GENERAL: The patient is awake, alert, and fully oriented, in no acute distress. HEAD: Normocephalic, atraumatic. EYES: PERRL, extraocular movements intact, sclera anicteric, conjunctiva clear. ENT: Oropharynx clear, without erythema or exudates. Moist mucous membranes. NECK: Trachea midline, full range of motion. Supple without lymphadenopathy. LUNGS: Breath sounds equal, clear to auscultation bilaterally. No wheezes, no crackles. No accessory muscle use. HEART: Regular rate and rhythm. S1, S2 without murmur, rub or gallop. ABDOMEN: Soft, distended. Tender to palpation, worst at right lower quadrant. Vertical surgical scar stapled, well approximated, clean dry. Negative drainage. EXTREMITIES: 2+ radial, dorsalis pedis pulses bilaterally. Warm, well-perfused. No lower extremity edema bilaterally. NEUROLOGICAL: Cranial nerves II through XII grossly intact. Normal speech. No gross focal deficits. PSYCH: Normal mood, normal affect upon my encounter. SKIN: Warm, dry. Laboratory Results - last 24 hr 11/16/19 11/16/19 11/17/19 16:58 20:48 06:03 WBC RBC Hgb Hct MCV MCH MCHC RDW Plt Count MPV Absolute Neuts (auto) Neutrophils % Lymphocytes % Monocytes % Eosinophils % Basophils % Nucleated RBC % Sodium Potassium Chloride Carbon Dioxide Anion Gap BUN Creatinine Est GFR (CKD-EPI)AfAm Est GFR (CKD-EPI)NonAf POC Glucometer 89 107 92 Random Glucose Calcium Phosphorus Magnesium 11/17/19 11/17/19 06:56 06:56 WBC 11.8 H RBC 4.09 Hgb 12.6 Hct 37.7 MCV 92.1 MCH 30.8 MCHC 33.4 RDW 17.4 H Plt Count 230 MPV 9.2 Absolute Neuts (auto) 8.7 H Neutrophils % 73.4 Lymphocytes % 17.2 D Monocytes % 8.6 Eosinophils % 0.3 D Basophils % 0.5 Nucleated RBC % 0 Sodium 140 Potassium 3.8 Chloride 106 Carbon Dioxide 23 Anion Gap 11 BUN 8.8 Creatinine 0.5 L Est GFR (CKD-EPI)AfAm 129.96 Est GFR (CKD-EPI)NonAf 112.13 POC Glucometer Random Glucose 81 Calcium 8.4 L Phosphorus 2.9 Magnesium 2.1 Active Medications Generic Name Dose Route Start Last Admin Trade Name Freq PRN Reason Stop Dose Admin Acetaminophen 650 mg 11/14/19 13:02 Tylenol - PO Q4H PRN FEVER Amlodipine Besylate 10 mg 11/15/19 10:00 11/17/19 09:29 Norvasc - PO Not Given DAILY RIO Enoxaparin Sodium 40 mg 11/16/19 10:00 11/17/19 09:29 Lovenox - SQ 40 mg DAILY RIO Administration Famotidine/Sodium Chloride 20 mg in 50 mls @ 100 mls/hr 11/14/19 22:00 11/17/19 09:29 Pepcid 20 Mg Premixed Ivpb - IVPB 100 mls/hr BID RIO Administration Sodium Chloride 1,000 mls @ 75 mls/hr 11/14/19 13:19 11/16/19 15:14 Normal Saline - IV 75 mls/hr ASDIR RIO Administration Piperacillin Sod/Tazobactam 100 mls @ 200 mls/hr 11/14/19 18:00 11/17/19 09:00 Sod 4.5 gm/ Dextrose IVPB 200 mls/hr Q8H-IV RIO Administration Protocol Insulin Aspart 1 vial 11/14/19 16:30 11/17/19 06:09 Novolog Vial Sliding Scale - SQ Not Given BIDAC [facility] Protocol Morphine Sulfate 8 mg 11/14/19 13:02 11/14/19 17:33 Morphine Sulfate IVPB 8 mg Q3H PRN Administration PAIN LEVEL 7 - 10 Nicotine 7 mg 11/15/19 10:00 11/17/19 09:29 Nicoderm Patch - TD Not Given DAILY RIO Ondansetron HCl 4 mg 11/14/19 13:10 Zofran Injection IVPUSH Q6H PRN NAUSEA AND/OR VOMITING Oxycodone HCl 7.5 mg 11/14/19 13:02 11/17/19 08:27 Roxicodone - PO 7.5 mg Q4H PRN Administration PAIN LEVEL 4 - 6 Promethazine HCl 12.5 mg 11/14/19 13:10 Phenergan Injection - IVPUSH Q6H PRN NAUSEA-FOR RESCUE AFTER 15 MIN ASSESSMENT/PLAN: Patient is a 69 year old male with history of hypertension, diabetes mellitus, rruptured appendicitis (with resultant abscess) presents with right lower quadrant pain. Right lower quadrant mass -CT abdomen pelvis reveals -Patient is POD #3 s/p exploratory laparotomy, right sided hemicoletomy, proximal ileum resection. -Continue IV Zosyn (day #4) -Awaiting surgical pathology report -Diet advance per surgery -IV normal saline at 75mL/ hour -Oxycodone 7.5mg PO Q4 hours PRN for pain 7-10 -Morphine 2mg IV q4 hours for breakthrough pain. -Encouraged incentive spirometer use History of hypertension -Home Amlodipine dose increased to 10mg PO daily. History of diabetes mellitus -Insulin sliding scale ACHS once initiated on diet -Fingerstick blood glucose monitoring ACHS FEN -IV normal saline at 75mL/ hour -Follow BMP -NPo, per surgery Prophylaxis -Lovenox 40mg subq daily Disposition -Continue care in medical- surgical floor. Visit type - Emergency Visit Emergency Visit: Yes ED Registration Date: 11/12/19 Care time: The patient presented to the Emergency Department on the above date and was hospitalized for further evaluation of their emergent condition. - New Patient This patient is new to me today: Yes Date on this admission: 11/18/19 - Critical Care Critical Care patient: No - Discharge Referral Referred to [facility] Med P.C.: No - Medication Review Med list reviewed for High Risk Meds patients 65 and older: Yes ATTENDING PHYSICIAN STATEMENT I saw and evaluated the patient. I reviewed the resident's note and discussed the case with the resident. I agree with the resident's findings and plan as documented. SUBJECTIVE: OBJECTIVE: ASSESSMENT AND PLAN:
--- NOTE | 2019-11-17 12:31 | PN ---
Progress Note (short form) - Note Progress Note: surgery pt seen and examined. remains well. oob and voiding. afebrile abd- soft, mild rlq tenderness. incision clean Laboratory Tests 11/16/19 11/16/19 11/17/19 06:53 06:53 06:56 WBC 13.3 H 11.8 H Potassium 3.6 Phosphorus 2.4 L 11/17/19 06:56 WBC Potassium 3.8 Phosphorus 2.9 A/P 1) pod#3- right colectomy and small bowel resection for cecal mass- cont npo, cont ivf, 2) inflammatory mass- cont iv abx. follow path- appendictis vs neoplasm. never received prelim results, probably Tuesday 3) prophylaxis- lovenox, pepcid, oob, spirometer, 4) pain- morphine, tylenol, oxycodone 5) dm, htn- per medical team 6) hypophosphatemia- resolved 7) lekocytosis- from inflammatory mass and surgical reaction. improving. cont abx
[2019-11-17] MEDS ORDERED: MORPHINE SULFATE 2 MG/ML VIAL IVPUSH PRN (14:55)
--- NOTE | 2019-11-17 15:11 | PN ---
Teaching Attending Note Name of Resident: Aleks Freeman ATTENDING PHYSICIAN STATEMENT I saw and evaluated the patient. I reviewed the resident's note and discussed the case with the resident. I agree with the resident's findings and plan as documented. SUBJECTIVE: Feels well post-op. Comfortable, pain well controlled. No Flatus. No fever/chills. OBJECTIVE: Afebrile Hemodynamcially Stable. Last Vital Signs Temp Pulse Resp BP Pulse Ox 98 F 76 18 162/82 96 11/17/19 09:29 11/17/19 09:29 11/17/19 09:29 11/17/19 09:29 11/17/19 09:29 Heart - S1, S2, RRR Lungs - clear to auscultation Abdomen - Midline laparotomy incision with elvin in situ. Incision site clean. Reduced Bowel Sounds Extremities - no edema, no calf tenderness. Neuro - AAO x 3. Tone/Power normal all extremities. Laboratory Results - last 24 hr 11/16/19 11/16/19 11/17/19 16:58 20:48 06:03 WBC RBC Hgb Hct MCV MCH MCHC RDW Plt Count MPV Absolute Neuts (auto) Neutrophils % Lymphocytes % Monocytes % Eosinophils % Basophils % Nucleated RBC % Sodium Potassium Chloride Carbon Dioxide Anion Gap BUN Creatinine Est GFR (CKD-EPI)AfAm Est GFR (CKD-EPI)NonAf POC Glucometer 89 107 92 Random Glucose Calcium Phosphorus Magnesium 11/17/19 11/17/19 06:56 06:56 WBC 11.8 H RBC 4.09 Hgb 12.6 Hct 37.7 MCV 92.1 MCH 30.8 MCHC 33.4 RDW 17.4 H Plt Count 230 MPV 9.2 Absolute Neuts (auto) 8.7 H Neutrophils % 73.4 Lymphocytes % 17.2 D Monocytes % 8.6 Eosinophils % 0.3 D Basophils % 0.5 Nucleated RBC % 0 Sodium 140 Potassium 3.8 Chloride 106 Carbon Dioxide 23 Anion Gap 11 BUN 8.8 Creatinine 0.5 L Est GFR (CKD-EPI)AfAm 129.96 Est GFR (CKD-EPI)NonAf 112.13 POC Glucometer Random Glucose 81 Calcium 8.4 L Phosphorus 2.9 Magnesium 2.1 Current Medications Generic Name Dose Route Start Last Admin Trade Name Freq PRN Reason Stop Dose Admin Acetaminophen 650 mg 11/14/19 13:02 Tylenol - PO Q4H PRN FEVER Amlodipine Besylate 10 mg 11/15/19 10:00 11/17/19 09:29 Norvasc - PO Not Given DAILY [facility] Enoxaparin Sodium 40 mg 11/16/19 10:00 11/17/19 09:29 Lovenox - SQ 40 mg DAILY RIO Administration Famotidine/Sodium Chloride 20 mg in 50 mls @ 100 mls/hr 11/14/19 22:00 11/17/19 09:29 Pepcid 20 Mg Premixed Ivpb - IVPB 100 mls/hr BID RIO Administration Sodium Chloride 1,000 mls @ 75 mls/hr 11/14/19 13:19 11/16/19 15:14 Normal Saline - IV 75 mls/hr ASDIR RIO Administration Piperacillin Sod/Tazobactam 100 mls @ 200 mls/hr 11/14/19 18:00 11/17/19 09:00 Sod 4.5 gm/ Dextrose IVPB 200 mls/hr Q8H-IV RIO Administration Protocol Insulin Aspart 1 vial 11/14/19 16:30 11/17/19 06:09 Novolog Vial Sliding Scale - SQ Not Given BIDAC [facility] Protocol Morphine Sulfate 2 mg 11/17/19 14:55 Morphine Sulfate IVPUSH Q4H PRN PAIN LEVEL 4-6 Nicotine 7 mg 11/15/19 10:00 11/17/19 09:29 Nicoderm Patch - TD Not Given DAILY [facility] Ondansetron HCl 4 mg 11/14/19 13:10 Zofran Injection IVPUSH Q6H PRN NAUSEA AND/OR VOMITING Oxycodone HCl 7.5 mg 11/17/19 14:55 Roxicodone - PO Q4H PRN PAIN LEVEL 7-10 Promethazine HCl 12.5 mg 11/14/19 13:10 Phenergan Injection - IVPUSH Q6H PRN NAUSEA-FOR RESCUE AFTER 15 MIN Home Medications Medication Instructions Recorded Amlodipine Besylate 5 mg PO DAILY 11/12/19 ASSESSMENT AND PLAN: 69 year old male smoker with HTN, with recent history of ruptured appendix, inflammatory mass in cecum with previous IR guided abscess drainage (declined surgical resection in october and wanted to be treated conservatively for presumed perforated appendicitis), presents with recurrence of RLQ abdominal pain, found to have persistent inflammatory mass in RLQ with leukocytosis. 1. Inflammatory Complex Mass RLQ involving terminal ileum POD 4 s/p ex-laparotomy /R hemiclectomy/resection proximal ileum/omental patch Feeling well, pain well controlled, no flatus. Still NPO - Advance diet as per Surgery IV hydration IV Zosyn Leukocytosis resolving. Monitor mild leukocytosis. No fever. Incentive Spirometry encouraged. Awaiting surgical pathology report to exclude malignancy. 2. HTN - Continue Norvasc (dose increased to 10mg). BP still on high side - will monitor as currently in post-op context of pain etc. 3. DM 2 - diet controlled, no longer on DM medications. Maintain on Novolog sliding scale as in-patient once diet resumes. 4. Hypophosphatemia - resolved s/p repletion. DVT Px - Lovenox SQ.
[2019-11-17] MEDS: SODIUM CHLORIDE 1,000 ML IV SCH ×2 (16:40→20:36)
--- NOTE | 2019-11-17 17:39 | PN ---
Progress Note, Physician History of Present Illness: Pt comfortable, afebrile. - Current Medication List Current Medications: Active Medications Acetaminophen (Tylenol -) 650 mg PO Q4H PRN PRN Reason: FEVER Amlodipine Besylate (Norvasc -) 10 mg PO DAILY [facility] Last Admin: 11/17/19 09:29 Dose: Not Given Documented by: Enoxaparin Sodium (Lovenox -) 40 mg SQ DAILY [facility] Last Admin: 11/17/19 09:29 Dose: 40 mg Documented by: Famotidine/Sodium Chloride (Pepcid 20 Mg Premixed Ivpb -) 20 mg in 50 mls @ 100 mls/hr IVPB BID [facility] Last Admin: 11/17/19 09:29 Dose: 100 mls/hr Documented by: Sodium Chloride (Normal Saline -) 1,000 mls @ 75 mls/hr IV ASDIR [facility] Last Admin: 11/17/19 16:40 Dose: Not Given Documented by: Piperacillin Sod/Tazobactam (Sod 4.5 gm/ Dextrose) 100 mls @ 200 mls/hr IVPB Q8H-IV [facility]; Protocol Last Admin: 11/17/19 17:06 Dose: 200 mls/hr Documented by: Insulin Aspart (Novolog Vial Sliding Scale -) 1 vial SQ BIDAC [facility]; Protocol Last Admin: 11/17/19 16:57 Dose: Not Given Documented by: Morphine Sulfate (Morphine Sulfate) 2 mg IVPUSH Q4H PRN PRN Reason: PAIN LEVEL 4-6 Nicotine (Nicoderm Patch -) 7 mg TD DAILY [facility] Last Admin: 11/17/19 09:29 Dose: Not Given Documented by: Ondansetron HCl (Zofran Injection) 4 mg IVPUSH Q6H PRN PRN Reason: NAUSEA AND/OR VOMITING Oxycodone HCl (Roxicodone -) 7.5 mg PO Q4H PRN PRN Reason: PAIN LEVEL 7-10 Last Admin: 11/17/19 16:39 Dose: 7.5 mg Documented by: Promethazine HCl (Phenergan Injection -) 12.5 mg IVPUSH Q6H PRN PRN Reason: NAUSEA-FOR RESCUE AFTER 15 MIN - Objective Vital Signs: Vital Signs Temperature 98 F 11/17/19 09:29 Pulse Rate 76 11/17/19 09:29 Respiratory Rate 18 11/17/19 09:29 Blood Pressure 162/82 11/17/19 09:29 O2 Sat by Pulse Oximetry (%) 96 11/17/19 09:29 Constitutional: Yes: No Distress, Calm Cardiovascular: Yes: Regular Rate and Rhythm Respiratory: Yes: Regular Gastrointestinal: Yes: Soft, Hypoactive Bowel Sounds, Tenderness (mild) Genitourinary: Yes: WNL Integumentary: Yes: WNL Wound/Incision: Yes: Other (abd incision site clean) Neurological: Yes: Alert Labs: CBC, BMP 11/17/19 06:56 11/17/19 06:56 INR, PTT INR 0.99 (0.83-1.09) 11/12/19 14:30 Laboratory Last Values WBC 11.8 K/mm3 (4.0-10.0) H 11/17/19 06:56 RBC 4.09 M/mm3 (4.00-5.60) 11/17/19 06:56 Hgb 12.6 GM/dL (11.7-16.9) 11/17/19 06:56 Hct 37.7 % (35.4-49) 11/17/19 06:56 MCV 92.1 fl (80-96) 11/17/19 06:56 MCH 30.8 pg (25.7-33.7) 11/17/19 06:56 MCHC 33.4 g/dl (32.0-35.9) 11/17/19 06:56 RDW 17.4 % (11.9-15.9) H 11/17/19 06:56 Plt Count 230 K/MM3 (134-434) 11/17/19 06:56 MPV 9.2 fl (7.5-11.1) 11/17/19 06:56 Absolute Neuts (auto) 8.7 K/mm3 (1.5-8.0) H 11/17/19 06:56 Neutrophils % 73.4 % (42.8-82.8) 11/17/19 06:56 Lymphocytes % 17.2 % (8-40) D 11/17/19 06:56 Monocytes % 8.6 % (3.8-10.2) 11/17/19 06:56 Eosinophils % 0.3 % (0-4.5) D 11/17/19 06:56 Basophils % 0.5 % (0-2.0) 11/17/19 06:56 Nucleated RBC % 0 % (0-0) 11/17/19 06:56 PT with INR 11.70 SEC (9.7-13.0) 11/12/19 14:30 INR 0.99 (0.83-1.09) 11/12/19 14:30 PTT (Actin FS) 28.9 SECONDS (25.2-36.5) 11/12/19 14:30 Sodium 140 mmol/L (136-145) 11/17/19 06:56 Potassium 3.8 mmol/L (3.5-5.1) 11/17/19 06:56 Chloride 106 mmol/L (98-107) 11/17/19 06:56 Carbon Dioxide 23 mmol/L (21-32) 11/17/19 06:56 Anion Gap 11 MMOL/L (8-16) 11/17/19 06:56 BUN 8.8 mg/dL (7-18) 11/17/19 06:56 Creatinine 0.5 mg/dL (0.55-1.3) L 11/17/19 06:56 Est GFR (CKD-EPI)AfAm 129.96 11/17/19 06:56 Est GFR (CKD-EPI)NonAf 112.13 11/17/19 06:56 POC Glucometer 74 UNITS (80-120) 11/17/19 16:49 Random Glucose 81 mg/dL (74-106) 11/17/19 06:56 Calcium 8.4 mg/dL (8.5-10.1) L 11/17/19 06:56 Phosphorus 2.9 mg/dL (2.5-4.9) 11/17/19 06:56 Magnesium 2.1 mg/dL (1.8-2.4) 11/17/19 06:56 Total Bilirubin 0.8 mg/dL (0.2-1) 11/12/19 14:30 AST 29 U/L (15-37) 11/12/19 14:30 ALT 47 U/L (13-61) 11/12/19 14:30 Alkaline Phosphatase 119 U/L (45-117) H 11/12/19 14:30 Total Protein 7.1 g/dl (6.4-8.2) 11/12/19 14:30 Albumin 3.4 g/dl (3.4-5.0) 11/12/19 14:30 Lipase 132 U/L (73-393) 11/12/19 14:30 Carcinoembryonic Ag 5.0 ng/mL (0.0-4.7) H 11/13/19 02:30 COVID-19 ([facility]) Not detected (Not Detected) 11/12/19 21:21 Blood Type O POSITIVE 11/12/19 23:50 Antibody Screen Negative 11/12/19 23:50 Microbiology 11/12/19 14:15 Blood - Peripheral Venous Blood Culture - Final NO GROWTH AFTER 5 DAYS INCUBATION 11/12/19 14:15 Blood - Peripheral Venous Blood Culture - Final NO GROWTH AFTER 5 DAYS INCUBATION - ....Imaging Cat Scan: Report Reviewed Problem List - Problems (1) Right lower quadrant pain Code(s): R10.31 - RIGHT LOWER QUADRANT PAIN (2) COPD (chronic obstructive pulmonary disease) Code(s): J44.9 - CHRONIC OBSTRUCTIVE PULMONARY DISEASE, UNSPECIFIED (3) Diabetes mellitus Code(s): E11.9 - TYPE 2 DIABETES MELLITUS WITHOUT COMPLICATIONS (4) Diverticulosis Code(s): K57.90 - DVRTCLOS OF INTEST, PART UNSP, W/O PERF OR ABSCESS W/O BLEED (5) Hyperlipidemia Code(s): E78.5 - HYPERLIPIDEMIA, UNSPECIFIED (6) Hypertension Code(s): I10 - ESSENTIAL (PRIMARY) HYPERTENSION Assessment/Plan RLQ pain Appendicitis s/p conservative tx Cecal mass s/p Rt hemicolectomy/proximal ileum resection POD#3 Leukocytosis DM HTN -- pain controlled, afebrile, wbc trending down -- continue Zosyn -- currently NPO -- surgery following -- monitor labs
[2019-11-18] MEDS ORDERED: PIPERACILLIN/TAZOBACTAM 4.5 GM VIAL IVPB ONE ×3 (02:26→15:49)
[2019-11-18] MEDS ORDERED: DEXTROSE 5%-WATER 100 ML IVPB ONE ×3 (02:26→15:49)
[2019-11-18] MEDS: PIPERACILLIN/TAZOB 4.5 GM 4.5 GM in DEXTROSE 5%-WATER 100 ML IVPB SCH ×3 (02:33→17:07)
[2019-11-18] MEDS: INSULIN SLIDING SCALE (NOVOLOG) 1 VIAL SQ SCH ×2 (06:35→15:34)
[2019-11-18] MEDS: oxyCODONE HCL 5 MG TABLET PO PRN ×5 (06:41→22:39)
[2019-11-18 08:09] LABS: HEMATOCRIT 37.5 % (35.4-49); HEMOGLOBIN 12.7 GM/dL (11.7-16.9); MCH 31.2 pg (25.7-33.7); MCHC 33.7 g/dl (32.0-35.9); MEAN CELL VOLUME 92.5 fl (80-96); MEAN PLT VOLUME 8.8 fl (7.5-11.1); PLATELET COUNT 270 K/MM3 (134-434); RBC 4.06 M/mm3 (4.00-5.60); RDW 17.2 % (11.9-15.9); WHITE BLOOD COUNT 10.2 K/mm3 (4.0-10.0)
[2019-11-18 08:44] LABS: ALBUMIN 2.7 g/dl (3.4-5.0); BILIRUBIN,TOTAL 0.8 mg/dL (0.2-1); BLOOD UREA NITROGEN 11.4 mg/dL (7-18); CALCIUM 8.6 mg/dL (8.5-10.1); CREATININE 0.7 mg/dL (0.55-1.3); MAGNESIUM 2.1 mg/dL (1.8-2.4); POTASSIUM 3.8 mmol/L (3.5-5.1); TOT PROT 6.2 g/dl (6.4-8.2)
[2019-11-18] MEDS: NICOTINE 7 MG/24 HOURS TOPICAL PATCH TD SCH (10:26)
[2019-11-18] MEDS: FAMOTIDINE 20 MG/50 ML IVPB 20 MG/50 ML MG IVPB SCH ×2 (10:26→22:39)
[2019-11-18] MEDS: amLODIPine BESYLATE 10 MG TABLET (FP) PO SCH (10:27)
[2019-11-18] MEDS: ENOXAPARIN NA (PORCINE) 40 MG/0.4 ML DISP.SYRIN SQ SCH (10:27)
--- NOTE | 2019-11-18 12:16 | PN ---
Progress Note (short form) - Note Progress Note: surgery pt seen and examined. remains well. oob and voiding. Still no flatus. afebrile abd- soft, mild rlq tenderness. incision clean. unchanged. mild distension Laboratory Tests 11/18/19 07:10 WBC 10.2 H A/P 1) pod#4- right colectomy and small bowel resection for cecal mass- cont npo, cont ivf, - awaiting flatus with two anastamosis. 2) inflammatory mass- cont iv abx. follow path- appendictis vs neoplasm. ne fazal received prelim results, probably Tuesday 3) prophylaxis- lovenox, pepcid, oob, spirometer, 4) pain- morphine, tylenol, oxycodone 5) dm, htn- per medical team 6) hypophosphatemia- resolved 7) lekocytosis- from inflammatory mass and surgical reaction. improving. cont abx. almost normal.
--- NOTE | 2019-11-18 14:31 | PN ---
Progress Note (short form) - Note Progress Note: SUBJECTIVE: Feels well post-op. Comfortable, pain well controlled. Still no Flatus. No fever/chills. OBJECTIVE: Afebrile Hemodynamcially Stable. Last Vital Signs Temp Pulse Resp BP Pulse Ox 97.5 F L 80 18 163/83 95 11/18/19 05:30 11/18/19 05:30 11/18/19 08:14 11/18/19 05:30 11/18/19 08:14 Heart - S1, S2, RRR Lungs - clear to auscultation Abdomen - Midline laparotomy incision with elvin in situ. Incision site clean. Reduced Bowel Sounds Extremities - no edema, no calf tenderness. Neuro - AAO x 3. Tone/Power normal all extremities. Laboratory Results - last 24 hr 11/17/19 11/18/19 11/18/19 16:49 06:26 07:10 WBC 10.2 H RBC 4.06 Hgb 12.7 Hct 37.5 MCV 92.5 MCH 31.2 MCHC 33.7 RDW 17.2 H Plt Count 270 MPV 8.8 Sodium Potassium Chloride Carbon Dioxide Anion Gap BUN Creatinine Est GFR (CKD-EPI)AfAm Est GFR (CKD-EPI)NonAf POC Glucometer 74 80 Random Glucose Calcium Phosphorus Magnesium Total Bilirubin AST ALT Alkaline Phosphatase Total Protein Albumin 11/18/19 07:10 WBC RBC Hgb Hct MCV MCH MCHC RDW Plt Count MPV Sodium 140 Potassium 3.8 Chloride 104 Carbon Dioxide 27 Anion Gap 8 BUN 11.4 Creatinine 0.7 Est GFR (CKD-EPI)AfAm 113.18 Est GFR (CKD-EPI)NonAf 97.65 POC Glucometer Random Glucose 81 Calcium 8.6 Phosphorus 3.0 Magnesium 2.1 Total Bilirubin 0.8 AST 18 ALT 22 Alkaline Phosphatase 76 Total Protein 6.2 L Albumin 2.7 L Current Medications Generic Name Dose Route Start Last Admin Trade Name Freq PRN Reason Stop Dose Admin Acetaminophen 650 mg 11/14/19 13:02 Tylenol - PO Q4H PRN FEVER Amlodipine Besylate 10 mg 11/15/19 10:00 11/18/19 10:27 Norvasc - PO 10 mg DAILY [facility] Administration Enoxaparin Sodium 40 mg 11/16/19 10:00 11/18/19 10:27 Lovenox - SQ 40 mg DAILY [facility] Administration Famotidine/Sodium Chloride 20 mg in 50 mls @ 100 mls/hr 11/14/19 22:00 11/18/19 10:26 Pepcid 20 Mg Premixed Ivpb - IVPB 100 mls/hr BID [facility] Administration Sodium Chloride 1,000 mls @ 75 mls/hr 11/14/19 13:19 11/17/19 20:36 Normal Saline - IV 75 mls/hr ASDIR [facility] Administration Piperacillin Sod/Tazobactam 100 mls @ 200 mls/hr 11/14/19 18:00 11/18/19 11:00 Sod 4.5 gm/ Dextrose IVPB 200 mls/hr Q8H-IV [facility] Administration Protocol Insulin Aspart 1 vial 11/14/19 16:30 11/18/19 06:35 Novolog Vial Sliding Scale - SQ Not Given BIDAC [facility] Protocol Morphine Sulfate 2 mg 11/17/19 14:55 Morphine Sulfate IVPUSH Q4H PRN PAIN LEVEL 4-6 Nicotine 7 mg 11/15/19 10:00 11/18/19 10:26 Nicoderm Patch - TD 7 mg DAILY [facility] Administration Ondansetron HCl 4 mg 11/14/19 13:10 Zofran Injection IVPUSH Q6H PRN NAUSEA AND/OR VOMITING Oxycodone HCl 7.5 mg 11/17/19 14:55 11/18/19 10:25 Roxicodone - PO 7.5 mg Q4H PRN Administration PAIN LEVEL 7-10 Promethazine HCl 12.5 mg 11/14/19 13:10 Phenergan Injection - IVPUSH Q6H PRN NAUSEA-FOR RESCUE AFTER 15 MIN Home Medications Medication Instructions Recorded Amlodipine Besylate 5 mg PO DAILY 11/12/19 ASSESSMENT AND PLAN: 69 year old male smoker with HTN, with recent history of ruptured appendix, inflammatory mass in cecum with previous IR guided abscess drainage (declined surgical resection in october and wanted to be treated conservatively for presumed perforated appendicitis), presents with recurrence of RLQ abdominal pain, found to have persistent inflammatory mass in RLQ with leukocytosis. 1. Inflammatory Complex Mass RLQ involving terminal ileum POD 4 s/p ex-laparotomy /R hemiclectomy/resection proximal ileum/omental patch Feeling well, pain well-controlled, no flatus. IV hydration IV Zosyn Leukocytosis resolving. No fever. Incentive Spirometry encouraged. Still NPO, awaiting flatus - Advance diet as per Surgery Awaiting surgical pathology report to exclude malignancy. 2. HTN - Continue Norvasc (dose increased to 10mg). BP still on high side - will monitor as currently in post-op context of pain etc. 3. DM 2 - diet controlled, no longer on DM medications. Maintain on Novolog sliding scale as in-patient once diet resumes. 4. Hypophosphatemia - resolved s/p repletion. DVT Px - Lovenox SQ. Visit type - Emergency Visit Emergency Visit: Yes ED Registration Date: 11/12/19 Care time: The patient presented to the Emergency Department on the above date and was hospitalized for further evaluation of their emergent condition. - New Patient This patient is new to me today: No - Critical Care Critical Care patient: No - Discharge Referral Referred to [facility] No - Medication Review Med list reviewed for High Risk Meds patients 65 and older: Yes
[2019-11-18] MEDS: SODIUM CHLORIDE 1,000 ML IV SCH (14:34)
--- NOTE | 2019-11-18 18:14 | PN ---
Progress Note, Physician History of Present Illness: Pt is alert, afebrile, comfortable. No flatus yet. - Current Medication List Current Medications: Active Medications Acetaminophen (Tylenol -) 650 mg PO Q4H PRN PRN Reason: FEVER Amlodipine Besylate (Norvasc -) 10 mg PO DAILY [facility] Last Admin: 11/18/19 10:27 Dose: 10 mg Documented by: Enoxaparin Sodium (Lovenox -) 40 mg SQ DAILY [facility] Last Admin: 11/18/19 10:27 Dose: 40 mg Documented by: Famotidine/Sodium Chloride (Pepcid 20 Mg Premixed Ivpb -) 20 mg in 50 mls @ 100 mls/hr IVPB BID [facility] Last Admin: 11/18/19 10:26 Dose: 100 mls/hr Documented by: Sodium Chloride (Normal Saline -) 1,000 mls @ 75 mls/hr IV ASDIR [facility] Last Admin: 11/18/19 14:34 Dose: 75 mls/hr Documented by: Piperacillin Sod/Tazobactam (Sod 4.5 gm/ Dextrose) 100 mls @ 200 mls/hr IVPB Q8H-IV [facility]; Protocol Last Admin: 11/18/19 17:07 Dose: 200 mls/hr Documented by: Insulin Aspart (Novolog Vial Sliding Scale -) 1 vial SQ BIDAC [facility]; Protocol Last Admin: 11/18/19 15:34 Dose: Not Given Documented by: Morphine Sulfate (Morphine Sulfate) 2 mg IVPUSH Q4H PRN PRN Reason: PAIN LEVEL 4-6 Nicotine (Nicoderm Patch -) 7 mg TD DAILY [facility] Last Admin: 11/18/19 10:26 Dose: 7 mg Documented by: Ondansetron HCl (Zofran Injection) 4 mg IVPUSH Q6H PRN PRN Reason: NAUSEA AND/OR VOMITING Oxycodone HCl (Roxicodone -) 7.5 mg PO Q4H PRN PRN Reason: PAIN LEVEL 7-10 Last Admin: 11/18/19 14:30 Dose: 7.5 mg Documented by: Promethazine HCl (Phenergan Injection -) 12.5 mg IVPUSH Q6H PRN PRN Reason: NAUSEA-FOR RESCUE AFTER 15 MIN - Objective Vital Signs: Vital Signs Temperature 97.7 F 11/18/19 13:50 Pulse Rate 105 H 11/18/19 13:50 Respiratory Rate 16 11/18/19 13:50 Blood Pressure 156/89 11/18/19 13:50 O2 Sat by Pulse Oximetry (%) 95 11/18/19 08:14 Constitutional: Yes: No Distress, Calm Cardiovascular: Yes: Regular Rate and Rhythm Respiratory: Yes: Regular Gastrointestinal: Yes: Soft, Hypoactive Bowel Sounds Genitourinary: Yes: WNL Integumentary: Yes: WNL Wound/Incision: Yes: Nettie Intact, Other (clean, no erythema) Neurological: Yes: Alert, Oriented Labs: CBC, BMP 11/18/19 07:10 11/18/19 07:10 INR, PTT INR 0.99 (0.83-1.09) 11/12/19 14:30 Microbiology 11/12/19 14:15 Blood - Peripheral Venous Blood Culture - Final NO GROWTH AFTER 5 DAYS INCUBATION 11/12/19 14:15 Blood - Peripheral Venous Blood Culture - Final NO GROWTH AFTER 5 DAYS INCUBATION Problem List - Problems (1) Right lower quadrant pain Code(s): R10.31 - RIGHT LOWER QUADRANT PAIN (2) COPD (chronic obstructive pulmonary disease) Code(s): J44.9 - CHRONIC OBSTRUCTIVE PULMONARY DISEASE, UNSPECIFIED (3) Diabetes mellitus Code(s): E11.9 - TYPE 2 DIABETES MELLITUS WITHOUT COMPLICATIONS (4) Diverticulosis Code(s): K57.90 - DVRTCLOS OF INTEST, PART UNSP, W/O PERF OR ABSCESS W/O BLEED (5) Hyperlipidemia Code(s): E78.5 - HYPERLIPIDEMIA, UNSPECIFIED (6) Hypertension Code(s): I10 - ESSENTIAL (PRIMARY) HYPERTENSION Assessment/Plan RLQ pain Cecal mass s/p Rt hemicolectomy/proximal ileum resection POD#3 Leukocytosis DM HTN -- continue antibiotics -- pain controlled, afebrile, wbc trending down -- currently NPO, monitoring for bowel function -- surgery following -- monitor labs
[2019-11-19] MEDS ORDERED: PIPERACILLIN/TAZOBACTAM 4.5 GM VIAL IVPB ONE ×3 (01:56→17:01)
[2019-11-19] MEDS ORDERED: DEXTROSE 5%-WATER 100 ML IVPB ONE ×3 (01:56→17:01)
[2019-11-19] MEDS: PIPERACILLIN/TAZOB 4.5 GM 4.5 GM in DEXTROSE 5%-WATER 100 ML IVPB SCH ×3 (02:09→17:18)
[2019-11-19] MEDS: INSULIN SLIDING SCALE (NOVOLOG) 1 VIAL SQ SCH ×2 (06:23→16:21)
[2019-11-19 08:14] LABS: BASO % 0.3 % (0-2.0); EOS % 0.6 % (0-4.5); HEMATOCRIT 42.7 % (35.4-49); HEMOGLOBIN 13.9 GM/dL (11.7-16.9); LYMPH % 31.5 % (8-40); MCHC 32.5 g/dl (32.0-35.9); MEAN CELL VOLUME 92.4 fl (80-96); MEAN PLT VOLUME 8.8 fl (7.5-11.1); MONO % 7.4 % (3.8-10.2); NEUT % 60.2 % (42.8-82.8); PLATELET COUNT 340 K/MM3 (134-434); RBC 4.62 M/mm3 (4.00-5.60); RDW 17.4 % (11.9-15.9); WHITE BLOOD COUNT 10.4 K/mm3 (4.0-10.0)
[2019-11-19 08:48] LABS: BLOOD UREA NITROGEN 19.6 mg/dL (7-18); CALCIUM 8.7 mg/dL (8.5-10.1); CREATININE 0.8 mg/dL (0.55-1.3); MAGNESIUM 2.1 mg/dL (1.8-2.4); POTASSIUM 4.3 mmol/L (3.5-5.1)
[2019-11-19] MEDS: NICOTINE 7 MG/24 HOURS TOPICAL PATCH TD SCH (10:08)
[2019-11-19] MEDS: oxyCODONE HCL 5 MG TABLET PO PRN ×2 (10:08→21:43)
[2019-11-19] MEDS: amLODIPine BESYLATE 10 MG TABLET (FP) PO SCH (10:08)
[2019-11-19] MEDS: FAMOTIDINE 20 MG/50 ML IVPB 20 MG/50 ML MG IVPB SCH ×2 (10:08→21:44)
[2019-11-19] MEDS: ENOXAPARIN NA (PORCINE) 40 MG/0.4 ML DISP.SYRIN SQ SCH (10:08)
--- NOTE | 2019-11-19 14:10 | PN ---
Progress Note, Physician History of Present Illness: stable started on liquids - Current Medication List Current Medications: Active Medications Acetaminophen (Tylenol -) 650 mg PO Q4H PRN PRN Reason: FEVER Amlodipine Besylate (Norvasc -) 10 mg PO DAILY [facility] Last Admin: 11/19/19 10:08 Dose: 10 mg Documented by: Enoxaparin Sodium (Lovenox -) 40 mg SQ DAILY [facility] Last Admin: 11/19/19 10:08 Dose: 40 mg Documented by: Famotidine/Sodium Chloride (Pepcid 20 Mg Premixed Ivpb -) 20 mg in 50 mls @ 100 mls/hr IVPB BID [facility] Last Admin: 11/19/19 10:08 Dose: 100 mls/hr Documented by: Sodium Chloride (Normal Saline -) 1,000 mls @ 75 mls/hr IV ASDIR [facility] Last Admin: 11/18/19 14:34 Dose: 75 mls/hr Documented by: Piperacillin Sod/Tazobactam (Sod 4.5 gm/ Dextrose) 100 mls @ 200 mls/hr IVPB Q8H-IV [facility]; Protocol Last Admin: 11/19/19 11:57 Dose: 200 mls/hr Documented by: Insulin Aspart (Novolog Vial Sliding Scale -) 1 vial SQ BIDAC [facility]; Protocol Last Admin: 11/19/19 06:23 Dose: Not Given Documented by: Morphine Sulfate (Morphine Sulfate) 2 mg IVPUSH Q4H PRN PRN Reason: PAIN LEVEL 4-6 Nicotine (Nicoderm Patch -) 7 mg TD DAILY [facility] Last Admin: 11/19/19 10:08 Dose: 7 mg Documented by: Ondansetron HCl (Zofran Injection) 4 mg IVPUSH Q6H PRN PRN Reason: NAUSEA AND/OR VOMITING Oxycodone HCl (Roxicodone -) 7.5 mg PO Q4H PRN PRN Reason: PAIN LEVEL 7-10 Last Admin: 11/19/19 10:08 Dose: 7.5 mg Documented by: Promethazine HCl (Phenergan Injection -) 12.5 mg IVPUSH Q6H PRN PRN Reason: NAUSEA-FOR RESCUE AFTER 15 MIN - Objective Vital Signs: Vital Signs Temperature 97.5 F L 11/19/19 08:34 Pulse Rate 95 H 11/19/19 08:34 Respiratory Rate 18 11/19/19 09:00 Blood Pressure 156/90 11/19/19 08:34 O2 Sat by Pulse Oximetry (%) 92 L 11/19/19 09:00 Constitutional: Yes: No Distress, Calm Cardiovascular: Yes: S1, S2 Respiratory: Yes: Regular, CTA Bilaterally Gastrointestinal: Yes: Normal Bowel Sounds, Soft Musculoskeletal: Yes: WNL Extremities: Yes: WNL Wound/Incision: Yes: Clean/Dry Neurological: Yes: Alert, Oriented Psychiatric: Yes: Alert, Oriented Labs: CBC, BMP 11/19/19 07:15 11/19/19 07:15 INR, PTT INR 0.99 (0.83-1.09) 11/12/19 14:30 Assessment/Plan this patient with multiple medical problems who had appendicitis treated co nservatively and now coming back with increase in mass and probably abscess with leukocytosis Problem List - Problems (1) Right lower quadrant pain Code(s): R10.31 - RIGHT LOWER QUADRANT PAIN (2) COPD (chronic obstructive pulmonary disease) Code(s): J44.9 - CHRONIC OBSTRUCTIVE PULMONARY DISEASE, UNSPECIFIED (3) Diabetes mellitus Code(s): E11.9 - TYPE 2 DIABETES MELLITUS WITHOUT COMPLICATIONS (4) Diverticulosis Code(s): K57.90 - DVRTCLOS OF INTEST, PART UNSP, W/O PERF OR ABSCESS W/O BLEED (5) Hyperlipidemia Code(s): E78.5 - HYPERLIPIDEMIA, UNSPECIFIED (6) Hypertension Code(s): I10 - ESSENTIAL (PRIMARY) HYPERTENSION Assessment/Plan RLQ pain Cecal mass s/p Rt hemicolectomy/proximal ileum resection Leukocytosis DM HTN plan continue abx will deescalte soon
--- NOTE | 2019-11-19 14:14 | PN ---
Teaching Attending Note Name of Resident: Leonidas Tavera ATTENDING PHYSICIAN STATEMENT I saw and evaluated the patient. I reviewed the resident's note and discussed the case with the resident. I agree with the resident's findings and plan as documented. SUBJECTIVE: Feels well, comfortable, pain well controlled. Bloody BM overnight. No fever/chills. OBJECTIVE: Afebrile Hemodynamcially Stable. Last Vital Signs Temp Pulse Resp BP Pulse Ox 97.5 F L 95 H 18 156/90 92 L 11/19/19 08:34 11/19/19 08:34 11/19/19 09:00 11/19/19 08:34 11/19/19 09:00 Heart - S1, S2, RRR Lungs - clear to auscultation Abdomen - Midline laparotomy incision with elvin in situ. Incision site clean. Soft abdomen, Reduced Bowel Sounds Extremities - no edema, no calf tenderness. Neuro - AAO x 3. Tone/Power normal all extremities. Laboratory Results - last 24 hr 11/18/19 11/19/19 11/19/19 15:26 06:21 07:15 WBC 10.4 H RBC 4.62 Hgb 13.9 Hct 42.7 MCV 92.4 MCH 30.0 MCHC 32.5 RDW 17.4 H Plt Count 340 D MPV 8.8 Absolute Neuts (auto) 6.3 Neutrophils % 60.2 Lymphocytes % 31.5 D Monocytes % 7.4 Eosinophils % 0.6 D Basophils % 0.3 Nucleated RBC % 0 Sodium Potassium Chloride Carbon Dioxide Anion Gap BUN Creatinine Est GFR (CKD-EPI)AfAm Est GFR (CKD-EPI)NonAf POC Glucometer 90 94 Random Glucose Calcium Phosphorus Magnesium 11/19/19 07:15 WBC RBC Hgb Hct MCV MCH MCHC RDW Plt Count MPV Absolute Neuts (auto) Neutrophils % Lymphocytes % Monocytes % Eosinophils % Basophils % Nucleated RBC % Sodium 141 Potassium 4.3 Chloride 106 Carbon Dioxide 24 Anion Gap 12 BUN 19.6 H Creatinine 0.8 Est GFR (CKD-EPI)AfAm 107.13 Est GFR (CKD-EPI)NonAf 92.44 POC Glucometer Random Glucose 96 Calcium 8.7 Phosphorus 4.0 Magnesium 2.1 Current Medications Generic Name Dose Route Start Last Admin Trade Name Freq PRN Reason Stop Dose Admin Acetaminophen 650 mg 11/14/19 13:02 Tylenol - PO Q4H PRN FEVER Amlodipine Besylate 10 mg 11/15/19 10:00 11/19/19 10:08 Norvasc - PO 10 mg DAILY [facility] Administration Enoxaparin Sodium 40 mg 11/16/19 10:00 11/19/19 10:08 Lovenox - SQ 40 mg DAILY [facility] Administration Famotidine/Sodium Chloride 20 mg in 50 mls @ 100 mls/hr 11/14/19 22:00 11/19/19 10:08 Pepcid 20 Mg Premixed Ivpb - IVPB 100 mls/hr BID [facility] Administration Sodium Chloride 1,000 mls @ 75 mls/hr 11/14/19 13:19 11/18/19 14:34 Normal Saline - IV 75 mls/hr ASDIR [facility] Administration Piperacillin Sod/Tazobactam 100 mls @ 200 mls/hr 11/14/19 18:00 11/19/19 11:57 Sod 4.5 gm/ Dextrose IVPB 200 mls/hr Q8H-IV [facility] Administration Protocol Insulin Aspart 1 vial 11/14/19 16:30 11/19/19 06:23 Novolog Vial Sliding Scale - SQ Not Given BIDAC [facility] Protocol Morphine Sulfate 2 mg 11/17/19 14:55 Morphine Sulfate IVPUSH Q4H PRN PAIN LEVEL 4-6 Nicotine 7 mg 11/15/19 10:00 11/19/19 10:08 Nicoderm Patch - TD 7 mg DAILY [facility] Administration Ondansetron HCl 4 mg 11/14/19 13:10 Zofran Injection IVPUSH Q6H PRN NAUSEA AND/OR VOMITING Oxycodone HCl 7.5 mg 11/17/19 14:55 11/19/19 10:08 Roxicodone - PO 7.5 mg Q4H PRN Administration PAIN LEVEL 7-10 Promethazine HCl 12.5 mg 11/14/19 13:10 Phenergan Injection - IVPUSH Q6H PRN NAUSEA-FOR RESCUE AFTER 15 MIN Home Medications Medication Instructions Recorded Amlodipine Besylate 10 mg PO DAILY 11/12/19 Metformin HCl [Glucophage] 500 mg PO BID 11/19/19 Olmesartan Medoxomil 5 mg PO DAILY 11/19/19 ASSESSMENT AND PLAN: 69 year old male smoker with HTN, with recent history of ruptured appendix, inflammatory mass in cecum with previous IR guided abscess drainage (declined surgical resection in october and wanted to be treated conservatively for presumed perforated appendicitis), presents with recurrence of RLQ abdominal pain, found to have persistent inflammatory mass in RLQ with leukocytosis. 1. Inflammatory Complex Mass RLQ involving terminal ileum POD 5 s/p ex-laparotomy /R hemiclectomy/resection proximal ileum/omental patch Feeling well, pain well-controlled, bloody BMs IV hydration Leukocytosis resolved No fever. Incentive Spirometry encouraged. Continue IV Zosyn as per ID. Diet advanced to full liquid by Surgery. Awaiting surgical pathology report to exclude malignancy. if positive, will need Oncology input for staging studies. 2. HTN - Continue Norvasc (dose increased to 10mg). BP still on high side - will monitor as currently in post-op context of pain etc. 3. DM 2 - diet controlled, no longer on DM medications. Maintain on Novolog sliding scale as in-patient once diet resumes. 4. Hypophosphatemia - resolved s/p repletion. 5. Active Smoker - counselled, on nicotine patch. DVT Px - Lovenox SQ.
[2019-11-19] MEDS: SODIUM CHLORIDE 1,000 ML IV SCH (14:16)
--- NOTE | 2019-11-19 14:47 | PN ---
Physical Exam: SUBJECTIVE: Patient seen and examined at bedside. Patient tolerating full liquid diet. Diet will be advanced by surgery. Patient is comfortable with no acute overnight events. OBJECTIVE: Vital Signs Period Temp Pulse Resp BP Sys/Ayala Pulse Ox Last 24 Hr 97.5 F-98 F 86-95 18-18 139-156/75-90 92-95 GENERAL: The patient is awake, alert, and fully oriented, in no acute distress. LUNGS: Breath sounds equal, clear to auscultation bilaterally, no wheezes, no crackles, no accessory muscle use. HEART: Regular rate and rhythm, S1, S2 without murmur, rub or gallop. ABDOMEN: lower midline open laparotomy incision with adhesive and elvin. MILD Lower R and L quandrant pain upon light palpation. EXTREMITIES: 2+ pulses, warm, well-perfused, no edema. SKIN: Warm, dry, normal turgor, no rashes or lesions noted Laboratory Results - last 24 hr 11/18/19 11/19/19 11/19/19 15:26 06:21 07:15 WBC 10.4 H RBC 4.62 Hgb 13.9 Hct 42.7 MCV 92.4 MCH 30.0 MCHC 32.5 RDW 17.4 H Plt Count 340 D MPV 8.8 Absolute Neuts (auto) 6.3 Neutrophils % 60.2 Lymphocytes % 31.5 D Monocytes % 7.4 Eosinophils % 0.6 D Basophils % 0.3 Nucleated RBC % 0 Sodium Potassium Chloride Carbon Dioxide Anion Gap BUN Creatinine Est GFR (CKD-EPI)AfAm Est GFR (CKD-EPI)NonAf POC Glucometer 90 94 Random Glucose Calcium Phosphorus Magnesium 11/19/19 07:15 WBC RBC Hgb Hct MCV MCH MCHC RDW Plt Count MPV Absolute Neuts (auto) Neutrophils % Lymphocytes % Monocytes % Eosinophils % Basophils % Nucleated RBC % Sodium 141 Potassium 4.3 Chloride 106 Carbon Dioxide 24 Anion Gap 12 BUN 19.6 H Creatinine 0.8 Est GFR (CKD-EPI)AfAm 107.13 Est GFR (CKD-EPI)NonAf 92.44 POC Glucometer Random Glucose 96 Calcium 8.7 Phosphorus 4.0 Magnesium 2.1 Active Medications Generic Name Dose Route Start Last Admin Trade Name Freq PRN Reason Stop Dose Admin Acetaminophen 650 mg 11/14/19 13:02 Tylenol - PO Q4H PRN FEVER Amlodipine Besylate 10 mg 11/15/19 10:00 11/19/19 10:08 Norvasc - PO 10 mg DAILY RIO Administration Enoxaparin Sodium 40 mg 11/16/19 10:00 11/19/19 10:08 Lovenox - SQ 40 mg DAILY RIO Administration Famotidine/Sodium Chloride 20 mg in 50 mls @ 100 mls/hr 11/14/19 22:00 11/19/19 10:08 Pepcid 20 Mg Premixed Ivpb - IVPB 100 mls/hr BID RIO Administration Sodium Chloride 1,000 mls @ 75 mls/hr 11/14/19 13:19 11/19/19 14:16 Normal Saline - IV 75 mls/hr ASDIR RIO Administration Piperacillin Sod/Tazobactam 100 mls @ 200 mls/hr 11/14/19 18:00 11/19/19 11:57 Sod 4.5 gm/ Dextrose IVPB 200 mls/hr Q8H-IV RIO Administration Protocol Insulin Aspart 1 vial 11/14/19 16:30 11/19/19 06:23 Novolog Vial Sliding Scale - SQ Not Given [facility]AC [facility] Protocol Morphine Sulfate 2 mg 11/17/19 14:55 Morphine Sulfate IVPUSH Q4H PRN PAIN LEVEL 4-6 Nicotine 7 mg 11/15/19 10:00 11/19/19 10:08 Nicoderm Patch - TD 7 mg DAILY RIO Administration Ondansetron HCl 4 mg 11/14/19 13:10 Zofran Injection IVPUSH Q6H PRN NAUSEA AND/OR VOMITING Oxycodone HCl 7.5 mg 11/17/19 14:55 11/19/19 10:08 Roxicodone - PO 7.5 mg Q4H PRN Administration PAIN LEVEL 7-10 Promethazine HCl 12.5 mg 11/14/19 13:10 Phenergan Injection - IVPUSH Q6H PRN NAUSEA-FOR RESCUE AFTER 15 MIN ASSESSMENT/PLAN: Mr. Brewer is a 69-year-old male with a past medical history significant for ilio-cecal mass s/p percutaneous drainage of fluid collection on 10/18, iliopsoas abscess, s/p large right retroperitonea ilipsoas abscess drainage with pigtail catheter placement, COPD, Gallstones, colonic polyps, diverticulosis diabetes mellitus, and hypertension. # Right Lower Quadrant Pain/RLQ inflammatory mass resection - Patient is currently POD 5, s/p exploratory laparotomy, right pietro-colectomy with en-bloc resection of portion of proximal ileum - sample sent to pathology for identification of possible malignancy - pending path report will consult oncology and will proceed with staging if malignant - patient reports passing stool with clotting and bleeding - surgery advises this is normal and should continue for 3 weeks post op - pain medication PRN - currently day 7 of zosyn #HTN - patient continued on home bp medication - Norvasc #DM 2 - patient reports losing weight and maintains DM throgh proper diet - Maintain on Novolog sliding scale as diet progresses #DVT Px - Lovenox SQ Visit type - Emergency Visit Emergency Visit: Yes ED Registration Date: 11/12/19 Care time: The patient presented to the Emergency Department on the above date and was hospitalized for further evaluation of their emergent condition. - New Patient This patient is new to me today: No - Critical Care Critical Care patient: No - Discharge Referral Referred to [facility] Med P.C.: No - Medication Review Med list reviewed for High Risk Meds patients 65 and older: Yes ATTENDING PHYSICIAN STATEMENT I saw and evaluated the patient. I reviewed the resident's note and discussed the case with the resident. I agree with the resident's findings and plan as documented. SUBJECTIVE: OBJECTIVE: ASSESSMENT AND PLAN:
[2019-11-20] VITALS: BMI 25.0
[2019-11-20] MEDS ORDERED: PIPERACILLIN/TAZOBACTAM 4.5 GM VIAL IVPB ONE ×2 (01:18→10:31)
[2019-11-20] MEDS ORDERED: DEXTROSE 5%-WATER 100 ML IVPB ONE ×2 (01:19→10:31)
[2019-11-20] MEDS: PIPERACILLIN/TAZOB 4.5 GM 4.5 GM in DEXTROSE 5%-WATER 100 ML IVPB SCH ×2 (02:02→10:47)
[2019-11-20] MEDS: INSULIN SLIDING SCALE (NOVOLOG) 1 VIAL SQ SCH (07:02)
[2019-11-20 07:53] LABS: BASO % 0.4 % (0-2.0); EOS % 1.6 % (0-4.5); HEMATOCRIT 38.1 % (35.4-49); HEMOGLOBIN 12.8 GM/dL (11.7-16.9); LYMPH % 31.6 % (8-40); MCH 30.7 pg (25.7-33.7); MCHC 33.5 g/dl (32.0-35.9); MEAN CELL VOLUME 91.6 fl (80-96); MEAN PLT VOLUME 8.9 fl (7.5-11.1); MONO % 11.6 % (3.8-10.2); NEUT % 54.8 % (42.8-82.8); PLATELET COUNT 336 K/MM3 (134-434); RBC 4.16 M/mm3 (4.00-5.60); RDW 17.3 % (11.9-15.9); WHITE BLOOD COUNT 6.4 K/mm3 (4.0-10.0)
[2019-11-20 08:18] LABS: ALBUMIN 2.7 g/dl (3.4-5.0); BILIRUBIN,TOTAL 1.5 mg/dL (0.2-1); BLOOD UREA NITROGEN 18.2 mg/dL (7-18); CALCIUM 8.6 mg/dL (8.5-10.1); CREATININE 0.8 mg/dL (0.55-1.3); POTASSIUM 3.8 mmol/L (3.5-5.1)
--- NOTE | 2019-11-20 09:13 | PN ---
Progress Note (short form) - Note Progress Note: surgery POD#6 exploratory laparotomy, right pietro-colectomy with en-bloc resection of portion of proximal ileum. Patient seen and examined at bedside complaining of lots flatus. He is tolerating his full liquid diet and is having loose BMs mixed with dark brown blood. He has been OOB voiding and denies any CP, SOB, N/V, fever or chills. Vital Signs Temp 98.6 F 11/20/19 05:00 Pulse 75 11/20/19 05:00 Resp 18 11/20/19 05:00 BP 157/82 11/20/19 05:00 Pulse Ox 94 L 11/20/19 05:00 Intake & Output 11/19/19 11/19/19 11/20/19 11:59 23:59 11:59 Intake Total 250 430 460 Balance 250 430 460 Weight 185 lb Intake: IV 150 Normal Saline - 1,000 ml 150 @ 75 mls/hr IV ASDIR RIO Rx#:[id number] IVPB 100 50 100 Oral 380 360 Other: Voiding Method Toilet Toilet Toilet # Unmeasured Voids Void 2 Bowel Movement No No Height 6 ft Body Mass Index (BMI) 25.0 PE: A&Ox3, NAD Unlabored resp on RA ABD: slightly distended with mild diffuse tenderness throughout. Incisions c/d/i with surrounding tissue intact with no tracking erythema or evidence of collection or active d/c. b/L LE compartments soft, supple and non-tender with +2 DP pulses. Problem List - Problems (1) Acute appendicitis with appendiceal abscess Assessment/Plan: POD #6 patient doing well, continues to improve. 1) continue full liquid diet-d/c on full liquid diet x1 week 2) inflammatory mass- cont iv abx. follow path- appendictis vs neoplasm. 3) DVT prophylaxis- lovenox, pepcid, oob, spirometer, 4) pain control 5) dm, htn- per medical team 6) d/c home on Augmentin x 7 days 7) f/u with Dr Mccord next week. Evaluation and plan discussed with Dr Salinas Code(s): K35.33 - ACUTE APPENDICITIS WITH PERF AND LOC PERITONITIS, WITH ABSCS
[2019-11-20] MEDS: amLODIPine BESYLATE 10 MG TABLET (FP) PO SCH (10:47)
[2019-11-20] MEDS: ENOXAPARIN NA (PORCINE) 40 MG/0.4 ML DISP.SYRIN SQ SCH (10:47)
[2019-11-20] MEDS: FAMOTIDINE 20 MG/50 ML IVPB 20 MG/50 ML MG IVPB SCH (10:47)
[2019-11-20] MEDS: NICOTINE 7 MG/24 HOURS TOPICAL PATCH TD SCH (10:47)
[2019-11-20] MEDS: oxyCODONE HCL 5 MG TABLET PO PRN (10:48)
--- NOTE | 2019-11-20 11:46 | PN ---
Progress Note, Physician History of Present Illness: stable tolerated liquids - Current Medication List Current Medications: Active Medications Acetaminophen (Tylenol -) 650 mg PO Q4H PRN PRN Reason: FEVER Amlodipine Besylate (Norvasc -) 10 mg PO DAILY [facility] Last Admin: 11/20/19 10:47 Dose: 10 mg Documented by: Enoxaparin Sodium (Lovenox -) 40 mg SQ DAILY [facility] Last Admin: 11/20/19 10:47 Dose: 40 mg Documented by: Famotidine/Sodium Chloride (Pepcid 20 Mg Premixed Ivpb -) 20 mg in 50 mls @ 100 mls/hr IVPB BID [facility] Last Admin: 11/20/19 10:47 Dose: 100 mls/hr Documented by: Piperacillin Sod/Tazobactam (Sod 4.5 gm/ Dextrose) 100 mls @ 200 mls/hr IVPB Q8H-IV [facility]; Protocol Last Admin: 11/20/19 10:47 Dose: 200 mls/hr Documented by: Insulin Aspart ([facility] Vial Sliding Scale -) [facility] Last Admin: 11/20/19 07:02 Dose: Not Given Documented by: Morphine Sulfate (Morphine Sulfate) 2 mg IVPUSH Q4H PRN PRN Reason: PAIN LEVEL 4-6 Nicotine (Nicoderm Patch -) 7 mg TD DAILY [facility] Last Admin: 11/20/19 10:47 Dose: 7 mg Documented by: Ondansetron HCl (Zofran Injection) 4 mg IVPUSH Q6H PRN PRN Reason: NAUSEA AND/OR VOMITING Oxycodone HCl (Roxicodone -) 7.5 mg PO Q4H PRN PRN Reason: PAIN LEVEL 7-10 Last Admin: 11/20/19 10:48 Dose: 7.5 mg Documented by: Promethazine HCl (Phenergan Injection -) 12.5 mg IVPUSH Q6H PRN PRN Reason: NAUSEA-FOR RESCUE AFTER 15 MIN - Objective Vital Signs: Vital Signs Temperature 98.6 F 11/20/19 05:00 Pulse Rate 75 11/20/19 05:00 Respiratory Rate 18 11/20/19 05:00 Blood Pressure 157/82 11/20/19 05:00 O2 Sat by Pulse Oximetry (%) 94 L 11/20/19 05:00 Constitutional: Yes: No Distress, Calm Cardiovascular: Yes: S1, S2 Respiratory: Yes: Regular, CTA Bilaterally Gastrointestinal: Yes: Normal Bowel Sounds, Soft Musculoskeletal: Yes: WNL Extremities: Yes: WNL Wound/Incision: Yes: Clean/Dry Neurological: Yes: Alert, Oriented Psychiatric: Yes: Alert, Oriented Labs: CBC, BMP 11/20/19 06:40 11/20/19 06:40 INR, PTT INR 0.99 (0.83-1.09) 11/12/19 14:30 Assessment/Plan this patient with multiple medical problems who had appendicitis treated conservatively and now coming back with increase in mass and probably abscess with leukocytosis Problem List - Problems (1) Right lower quadrant pain Code(s): R10.31 - RIGHT LOWER QUADRANT PAIN (2) COPD (chronic obstructive pulmonary disease) Code(s): J44.9 - CHRONIC OBSTRUCTIVE PULMONARY DISEASE, UNSPECIFIED (3) Diabetes mellitus Code(s): E11.9 - TYPE 2 DIABETES MELLITUS WITHOUT COMPLICATIONS (4) Diverticulosis Code(s): K57.90 - DVRTCLOS OF INTEST, PART UNSP, W/O PERF OR ABSCESS W/O BLEED (5) Hyperlipidemia Code(s): E78.5 - HYPERLIPIDEMIA, UNSPECIFIED (6) Hypertension Code(s): I10 - ESSENTIAL (PRIMARY) HYPERTENSION Assessment/Plan RLQ pain Cecal mass s/p Rt hemicolectomy/proximal ileum resection Leukocytosis DM HTN plan can change to oral augmentin for 5 more dys
--- NOTE | 2019-11-20 15:07 | PN ---
Teaching Attending Note Name of Resident: Leonidas Tavera ATTENDING PHYSICIAN STATEMENT I saw and evaluated the patient. I reviewed the resident's note and discussed the case with the resident. I agree with the resident's findings and plan as documented. SUBJECTIVE: Patient feels well ready to go home Apparently heard pathology results which stated that patient's mass may be neoplastic in origin. OBJECTIVE: Vital Signs Period Temp Pulse Resp BP Sys/Ayala Pulse Ox Last 24 Hr 98.1 F-98.6 F 75-87 18-18 153-158/78-98 94-95 GENERAL: Awake, alert, in no acute distress. HEAD: Normal with no signs of trauma. EYES: Pupils equal, round and reactive to light, extraocular movements intact, sclera anicteric, conjunctiva clear. EARS, NOSE, THROAT: Ears normal, nares patent, Moist mucous membranes. NECK: Normal range of motion, No JVD, LUNGS: Breath sounds equal, clear to auscultation bilaterally. No wheezes, and no crackles. No accessory muscle use. HEART: Regular rate and rhythm, normal S1 and S2 without murmur, rub or gallop. ABDOMEN: Soft, tender to deep palpation. MUSCULOSKELETAL: Normal range of motion at all joints. No bony deformities or tenderness. No CVA tenderness. EXTREMITIES: 2+ pulses, warm, well-perfused. No calf tenderness. No peripheral edema. NEUROLOGICAL: Cranial nerves II-XII intact. Normal speech. PSYCHIATRIC: Cooperative. Good eye contact. Appropriate mood and affect. SKIN: Warm, dry, normal turgor, no rashes or lesions noted. ASSESSMENT AND PLAN: 69 y/o M with PMH as noted who presents with RLQ pain with cecal mass noted on CT Abdomen. Cecal Mass: Infectious vs. Malignancy Per Sx complete 7 additional days of PO ABx Pt tolerating PO intake, plan to discharge today Awaiting final results of pathology--concern for possible malignancy per patient No additional lesions noted on CT scan at admission to suggest metastatic disease, however can consider obtaining a PET scan as an outpatient. HTN Continue Norvasc Hold off on adding further medications at this time, his BP elevation can be due to stress/pain will need follow up for BP check in 1-2 weeks following discharge.
[2019-11-20 15:14] VITALS: BP 138/79; PULSE 78; TEMP 97.4
--- NOTE | 2019-11-20 18:35 | DS ---
Physical Exam: SUBJECTIVE: Patient seen and examined at bedside. Patient passing stool and tolerating diet well. Patient to be discharged today and follow up with surgery outpatient for further workup of bx. OBJECTIVE: Vital Signs Period Temp Pulse Resp BP Sys/Ayala Pulse Ox Last 24 Hr 97.4 F-98.6 F 75-87 16-18 138-158/78-98 94-95 PHYSICAL EXAM GENERAL: The patient is awake, alert, and fully oriented, in no acute distress. LUNGS: Breath sounds equal, clear to auscultation bilaterally, no wheezes, no crackles, no accessory muscle use. HEART: Regular rate and rhythm, S1, S2 without murmur, rub or gallop. ABDOMEN: Soft, nontender, nondistended, normoactive bowel sounds, no guarding, no rebound, no hepatosplenomegaly, no masses. EXTREMITIES: 2+ pulses, warm, well-perfused, no edema. SKIN: Warm, dry, normal turgor, no rashes or lesions noted. LABS Laboratory Results - last 24 hr 11/20/19 11/20/19 11/20/19 06:40 06:40 07:00 WBC 6.4 RBC 4.16 Hgb 12.8 Hct 38.1 MCV 91.6 MCH 30.7 MCHC 33.5 RDW 17.3 H Plt Count 336 MPV 8.9 Absolute Neuts (auto) 3.5 Neutrophils % 54.8 Lymphocytes % 31.6 Monocytes % 11.6 H Eosinophils % 1.6 D Basophils % 0.4 Nucleated RBC % 0 Sodium 140 Potassium 3.8 Chloride 106 Carbon Dioxide 25 Anion Gap 10 BUN 18.2 H Creatinine 0.8 Est GFR (CKD-EPI)AfAm 107.13 Est GFR (CKD-EPI)NonAf 92.44 POC Glucometer 124 Random Glucose 113 H Calcium 8.6 Total Bilirubin 1.5 H AST 35 ALT 46 Alkaline Phosphatase 97 Total Protein 6.0 L Albumin 2.7 L HOSPITAL COURSE: Date of Admission:11/12/19 Steve is a 69M w a h/o tobacco use in the past, htn, ruptured appendix managed with medication, inflamatory mass in cecum managed with previous IR guided abscess drainage (declined surgical resection in October and wanted conservative management for presumed perforated appendicitis). CT scan revealed inflammatory complex mass in RLQ involving terminal ileum. Surgery (Dr. Mccord) proceeded with exploratory laparotomy, right pietro-colectomy with en-bloc resection of portion of proximal ileum. Sample was sent to pathology for possible malignancy. Patient managed on abx and diet advanced to full liquids. Patient tolerating diet and pain well and will follow up outpatient with surgery for further treatment plan. Date of Discharge: 11/20/19 Minutes to complete discharge: 40 Discharge Summary Problems reviewed: Yes Reason For Visit: RIGHT LOWER QUADRANT ABDOMINAL PAIN; ABSCESS Condition: Good - Instructions Diet, Activity, Other Instructions: YOUR VISIT: You were admitted to the hospital for lower abdominal pain. While you were in the hospital, we evaluated you with lab work, blood work, and imaging including a CT scan of your abdomen and pelvis which revealed a mass in your large intestine as the cause of your symptoms. You were evaluated by the surgical team (Dr. Mccord) and you were taken to the operating room. The surgeons had removed the right side of your colon where the mass was located and the sample was sent for a pathology report. You were then treated with fluids, blood pressure medication, pain medication, and antibio tics. You tolerated a full liquid diet. You were medically cleared for discharged and you should meet with your surgeon for further work up. MEDICATIONS: Please START taking AUGMENTIN 875 twice a day for 7 days (11/21/2019 - 11/27/2019) Continue to take all other home medications as prescribed FOLLOW UPS: Please follow up with your surgeon (Dr. Hugo Mccord) 1 week after discharge to discuss the pathology results and future treatment plan. Call tomorrow morning to schedule an appointment. Please visit your primary care provider within 2 weeks to discuss your hospital course and medication management. (Dr. Pyle) ADDITIONAL INSTRUCTIONS: Please continue with a full liquid diet until your visit with Dr. Mccord Please return to the Emergency department if you are experiencing worsening or concerning symptoms. Physical activity Resume your normal everyday activity as tolerated no heavy lifting or exercise until seen by your surgeon. You may walk unlimited amounts of and climb stairs. You may resume driving the car when you feel safe and comfortable behind the wheel and no longer taking narcotics. Wound care Keep incision clean and dry. Do not apply lotion or ointments to incision. Sponge bathe and do not submerge incision until cleared by Dr Mccord. Pain management You may take Tylenol or acetaminophen or Ibuprofen (for example, Motrin, Advil etc.) Any pain prescription medication ordered should be taken as prescribed for moderate to severe pain. Call Dr. Mccord for any of the following: Severe pain not relieved by medication Fever of 101 or higher Excessive bleeding or drainage on dressing Inability to urinate Referrals: Jennifer Pyle MD [Primary Care Provider] - 1 Week (hospital course follow up - total r hemicolectomy for suspected malignancy with pending path report) Hugo Mccord MD [Staff Physician] - 1 Week (pathology report follow up) Disposition: HOME - Home Medications Comprehensive Discharge Medication List: Ambulatory Orders Amlodipine Besylate 10 mg PO DAILY 11/12/19 Metformin HCl [Glucophage] 500 mg PO BID 11/19/19 Olmesartan Medoxomil 5 mg PO DAILY 11/19/19 Amoxicillin/Potassium Clav [Augmentin 875-125 Tablet] 1 each PO BID #14 tablet 11/20/19 This patient is new to me today: No Emergency Visit: Yes ED Registration Date: 11/12/19 Care time: The patient presented to the Emergency Department on the above date and was hospitalized for further evaluation of their emergent condition. Critical Care patient: No - Discharge Referral Referred to [facility] Med P.C.: No ATTENDING PHYSICIAN STATEMENT I saw and evaluated the patient. I reviewed the resident's note and discussed the case with the resident. I agree with the resident's findings and plan as documented. SUBJECTIVE: OBJECTIVE: ASSESSMENT AND PLAN:
--- NOTE | 2019-11-21 17:04 | PATH ---
Surgical Pathology Report Patient Name: SHARON COPELAND Med. Rec. #: [id number] /Age/Gender: 1950 (Age: 69) / M Account: [id number] Location: [address] [place] [address]/[facility] Taken: 11/14/2019 Received: 11/14/2019 Reported: 11/21/2019 Physicians: Hugo Mccord M.D. Janet Pyle MD Specimen(s) Received RIGHT COLON WITH PORTION OF SMALL BOWEL Clinical History Right lower quadrant abdominal pain Cancer vs appendicitis Final Diagnosis RIGHT COLON WITH PORTION OF SMALL BOWEL, RIGHT HEMICOLECTOMY WITH EN BLOC RESECTION OF PORTION OF PROXIMAL ILEUM: MUCINOUS ADENOCARCINOMA, MODERATELY DIFFERENTIATED. TUMOR MEASURES 4.5 X 4.0 CM (GROSS MEASUREMENT). TUMOR LOCATED IN CECUM AND INVADES INTO ADJACENT PROXIMAL ILEUM. TUBULAR ADENOMA PRESENT IN RIGHT COLON. FOCAL LYMPHOVASCULAR IDENTIFIED. FOCAL PERINEURAL INVASION IDENTIFIED. NO TUMOR PERFORATION IDENTIFIED. RADIAL/MESENTERIC MARGIN IS FOCALLY INVOLVED BY TUMOR (POSITIVE); REMAINDER OF MUCOSAL MARGINS ARE NEGATIVE. SIXTEEN LYMPH NODES NEGATIVE FOR CARCINOMA (0/16). PATHOLOGIC STAGE (AJCC, TNM, 8TH ED): pT4b pN0. SEE COMMENT. SEE CASE SUMMARY BELOW. Comment: The mesenteric/radial margin is focally positive and shows a microscopic focus of adenocarcinoma. Immunohistochemical stains performed and interpreted at [facility] show AE1/3 is negative in selectively stained lymph nodes (Blocks 29, 30). Additional immunohistochemical and special stains performed at [place], [place] ([id number]) and interpreted at [facility] for D2-40 and Elastic (EVG) utilized to evaluate this case. Case discussed with Dr. Mccord, 11/19/19 Positive and negative controls (internal if applicable) show appropriate results. Comments Colorectal Carcinoma :Surgical Pathology Cancer Case Summary (Based on AJCC TNM 8 th edition) Procedure _X_ Right hemicolectomy with en bloc resection of portion of proximal ileum Tumor Site _X_ Cecum Tumor Size Greatest dimension (centimeters): 4.5 x 4.0 cm (gross measurement). Macroscopic Tumor Perforation _X_ Not identified Histologic Type _X_ Mucinous adenocarcinoma Histologic Grade _X_ G2: Moderately differentiated Tumor Extension _X_ Tumor directly invades adjacent structures (specify: proximal ileum) Margins Proximal Margin _X_ Uninvolved by invasive carcinoma Distal Margin _X_ Uninvolved by invasive carcinoma Involved by invasive carcinoma Radial or Mesenteric Margin _X_ Involved by invasive carcinoma (tumor present 0-1 mm from margin) Other Margin(s) Specify margin(s): ileum- proximal and distal margins _X_ Uninvolved by invasive carcinoma Treatment Effect _X_ No known presurgical therapy Lymphovascular Invasion _X_ Present _X_ Small vessel lymphovascular invasion Perineural Invasion _X_ Present Tumor Deposits _X_ Not identified Regional Lymph Nodes Lymph Node Examination Number of Lymph Nodes Involved: 0 Number of Lymph Nodes Examined: 16 Pathologic Stage Classification (pTNM, AJCC 8th Edition) Primary Tumor (pT) _X__ pT4b: Tumor directly invades or adheres to adjacent organs or structures Regional Lymph Nodes (pN) _X_ pN0: No regional lymph node metastasis Immunohistochemical stains for MisMatch Repair Protein Analysis performed at [facility] in [place], [place] ([id number]) and interpreted at [facility] show the following: RESULTS: HMLH-1 INTACT NUCLEAR EXPRESSION HMSH-2 LOSS OF NUCLEAR EXPRESSION HMSH-6 LOSS OF NUCLEAR EXPRESSION PMS2 INTACT NUCLEAR EXPRESSION INTERPRETATION: 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 MSI studies pending and will be reported separately Electronically Signed Madonna Gates M.D. Addendum Reported: 12/04/2019 Addendum Diagnosis MICROSATELLITE INSTABILITY (MSI) BY PCR ANALYSIS performed and interpreted at [facility] ([id number]). RESULTS: 2 of 5 markers tested are unstable. INTERPRETATION: HIGH FREQUENCY MICROSATELLITE INSTABILITY (MSI-H). 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 High frequency microsatellite instability (MSI-H) is associated with Nettles syndrome, but it is also found in 15-20% of sporadic colorectal and endometrial cancers. Nettles syndrome is an autosomal dominant inherited cancer syndrome that predisposes to colorectal, endometrial, gastric, ovarian, upper urinary tract, and other cancers. Suggest clinical correlation. See [facility] report for additional details. Madonna Gates M.D. Gross Description Received fresh labeled "right colon, portion of small bowel," is a 14 cm in length portion of ileum with an attached 12 cm in length portion of cecum and right colon. The specimen displays 2 open mucosal margins. There is a suture marking the ileum, per the surgeon. There is a 40 cm in length separate portion of small bowel adherent to the serosa of the cecum. The separate portion of small bowel displays two open mucosal margins. The cecum is bulging and the cecal serosa displays a defect. The separate small bowel serosa also displays a transmural defect adjacent to the adhesions. The specimen displays abundant attached fat. The cecal mucosa displays a 4.5 x 4.0 cm kraus, polypoid, centrally ulcerated mass extending through the serosa, contiguous with the adhesions and defect. There is a possible abscess cavity surrounding the mass. The mass is grossly 2 cm from the mesenteric margin of resection. The mass is 10 cm from the distal mucosal margin of resection. There is a luminal structure buried in the surrounding adhesions. Appendix is grossly not identified. There is a 0.7 x 0.5 x 0.5 cm mucosal polyp 1 cm distal to the mass. The remaining right colon mucosa is kraus with normal folds. Sectioning of the separate attached portion of small bowel displays hemorrhage surrounding the defect. There is an additional 0.3 cm in greatest dimension polypoid small bowel lesion, 1 cm from the defect. The remaining small bowel mucosa is unremarkable. Sectioning of the pericolonic adipose tissue displays multiple kraus lymph nodes, measuring up to 1.9 cm in greatest dimension. Crimper Operator sections are submitted in 45 cassettes as follows: 1-terminal ileal margin of resection; 2-distal right colon margin of resection; 3-mesenteric margin of resection closest to mass; 5-4-rrdxjfhx of cecal mass to rupture site; 7-10-zkvxmpxobm sections of mass; 73-53-luddilmg luminal structure; 17-right colon polyp 1 cm distal to mass; 18-uninvolved right colon; 19-uninvolved ileum; 83-64-bscqxni margins of separate attached portion of small bowel; 66-79-ersfcwqx from small bowel transmural defect; 27-small bowel polyp; 28-uninvolved sections from separate attached portion of small bowel; 29-30-one trisected lymph nodes; 31-41-one bisected lymph node each; 42-45-one whole lymph node each. 11/15/2019 [facility]/2019
== END 2019-11-20 17:37 | disposition home or self-care (01) | DRG 331 ==
LOC: JER 12:39 → JERBED 18:51 → J6S 11-13 00:06
PROVIDERS: ADMIT Internal Medicine; ATTEND Internal Medicine
PROC: 0DBB0ZX Excision of Ileum, Open Approach, Diagnostic (ICD-10-PCS; 2019-11-14)
PROC: 0DTF0ZZ Resection of Right Large Intestine, Open Approach (ICD-10-PCS; principal; 2019-11-14 11:00)
DX: C18.9 Malignant neoplasm of colon, unspecified (principal); E11.9 Type 2 diabetes mellitus without complications; I10 Essential (primary) hypertension; E83.39 Other disorders of phosphorus metabolism; F17.200 Nicotine dependence, unspecified, uncomplicated; D72.829 Elevated white blood cell count, unspecified; E78.5 Hyperlipidemia, unspecified
CPT/HCPCS: 36415; 74177-TC; 80048; 80053; 82378; 82962; 83690; 83735; 84100; 85025; 85027; 85610; 85730; 86850; 86900; 86901; 87040; 88309-TC; 93005; 93010; 94010; 94760; 97116-GP; 97162-GP; 99285-25; J0131; Q9967; U0003